=== PATIENT | female | born 1965 | race Two or more races ===

== ENCOUNTER 2017-09-16 08:38 | Emergency (ER) | payer OTHER ==
[~2017-09-16] VITALS: Ht 149.9 cm; Wt 113.4 kg
[~2017-09-16 08:38] MED LIST: ACETAMINOPHEN500 M3 ORAL; KEFLEX500 MG ORAL; MACROBID100 MG ORAL
[2017-09-16 08:43] VITALS: BP 124/87
[2017-09-16] MEDS ORDERED: NS 1000ml 3,400 ML IVLG ONE (09:00)
--- NOTE | 2017-09-16 09:01 | Emergency Room Report ---
History of Present Illness General Chief Complaint: General Complaint Present Illness HPI Patient is a 52-year-old female presented after increased generalized body aches and weakness for the past 3 days. Patient gradual onset of symptoms associated with nonproductive cough. Patient reported having increased palpitations she apparently had been taking ibuprofen and Tylenol. she stated she had not taken her blood pressure medications her diabetic medications morning. Patient denied any diarrhea but states she had been vomiting. She denies any diarrhea. She denies prior cardiac history Allergies: Coded Allergies: METFORMIN (Verified Allergy, Unknown, 09/16/17) Patient History Past Medical History: see triage record Reviewed Nursing Documentation: PMH: Agreed, PSxH: Agreed Nursing Documentation-PMH Hx Hypertension: Yes Hx Diabetes: Yes Review of Systems All Other Systems: negative except mentioned in HPI Physical Exam Vital Signs Date Time Temp Pulse Resp B/P (MAP) Pulse Ox O2 Delivery O2 Flow Rate FiO2 09/16/17 08:43 99.0 126 20 124/87 94 Room Air Sp02 EP Interpretation: reviewed, normal General Appearance: normal inspection, well appearing, alert, GCS 15, non-toxic , obese Head: atraumatic ENT: normal ENT inspection, hearing grossly normal, normal voice Neck: normal inspection, full range of motion, supple, no bony tend Respiratory: normal inspection, lungs clear, normal breath sounds, no respiratory distress, no retraction, no wheezing Cardiovascular #1: no edema, tachycardia Gastrointestinal: normal inspection, normal bowel sounds, non tender, soft, no guarding, no hernia Genitourinary: no CVA tenderness Musculoskeletal: normal inspection, back normal, normal range of motion Neurologic: normal inspection, alert, oriented x3, responsive, mottler operator III-XII nml as tested, speech normal Psychiatric: normal inspection, judgement/insight normal, mood/affect normal Skin: normal inspection, normal color, no rash Medical Decision Making Diagnostic Impression: Primary Impression: Fever Additional Impression: Urinary tract infection ER Course Patient presented for fever. Differential diagnosis included wasn't limited to pneumonia, urinary tract infection, influenza, drug fever, allergic reaction, sepsis, cholecystitis, among others. Because of complexity of patient's case laboratory testing and imaging studies were ordered.Laboratory studies showed evidence of urinary infection. Patient was given IV fluids as well as IV antibiotics. Patient stated she felt better wanted to go home.The patient is advised to follow up with primary care doctor in 1-2 days. Patient is advised to return if any worsening condition or if any changes in status that are concerning. This report is dictated with [employer] machine set up operator software which may occasionally lead to discrepancies related to use of this software. Labs Test 09/16/17 09:00 09/16/17 09:14 Urine Color Pale yellow Urine Appearance Clear Urine pH 6 (4.5-8.0) Urine Specific [place] 1.010 (1.005-1.035) Urine Protein 1+ (NEGATIVE) Urine Glucose (UA) Negative (NEGATIVE) Urine Ketones Negative (NEGATIVE) Urine Occult Blood 1+ (NEGATIVE) Urine Nitrite Negative (NEGATIVE) Urine Bilirubin Negative (NEGATIVE) Urine Urobilinogen Normal MG/DL (0.0-1.0) Urine Leukocyte Esterase 3+ (NEGATIVE) Urine RBC 2-4 /HPF (0 - 2) Urine WBC 15-20 /HPF (0 - 2) Urine Squamous Epithelial Cells Few /LPF (NONE/OCC) Urine Bacteria Few /HPF (NONE) White Blood Count 6.1 K/UL (4.8-10.8) Red Blood Count 4.79 M/UL (4.20-5.40) Hemoglobin 14.3 G/DL (12.0-16.0) Hematocrit 44.1 % (37.0-47.0) Mean Corpuscular Volume 92 FL (80-99) Mean Corpuscular Hemoglobin 29.9 PG (27.0-31.0) Mean Corpuscular Hemoglobin Concent 32.5 G/DL (32.0-36.0) Red Cell Distribution Width 12.6 % (11.6-14.8) Platelet Count 210 K/UL (150-450) Mean Platelet Volume 7.6 FL (6.5-10.1) Neutrophils (%) (Auto) 74.6 % (45.0-75.0) Lymphocytes (%) (Auto) 16.6 % (20.0-45.0) Monocytes (%) (Auto) 7.7 % (1.0-10.0) Eosinophils (%) (Auto) 0.5 % (0.0-3.0) Basophils (%) (Auto) 0.6 % (0.0-2.0) Sodium Level 137 MMOL/L (136-145) Potassium Level 3.4 MMOL/L (3.5-5.1) Chloride Level 99 MMOL/L (98-107) Carbon Dioxide Level 28 MMOL/L (21-32) Anion Gap 10 mmol/L (5-15) Blood Urea Nitrogen 10 mg/dL (7-18) Creatinine 0.8 MG/DL (0.55-1.30) Estimat Glomerular Filtration Rate > 60 mL/min (>60) Glucose Level 196 MG/DL (74-106) Lactic Acid Level 1.80 mmol/L (0.66-2.22) Calcium Level 8.8 MG/DL (8.5-10.1) Phosphorus Level 2.7 MG/DL (2.5-4.9) Magnesium Level 1.7 MG/DL (1.8-2.4) Total Bilirubin 0.4 MG/DL (0.2-1.0) Aspartate Amino Transf (AST/SGOT) 18 U/L (15-37) Alanine Aminotransferase (ALT/SGPT) 38 U/L (12-78) Alkaline Phosphatase 145 U/L (46-116) Total Creatine Kinase 104 U/L (26-308) Creatine Kinase MB 0.5 NG/ML (0.0-3.6) Creatine Kinase MB Relative Index 0.4 Troponin I 0.000 ng/mL (0.000-0.056) Total Protein 7.5 G/DL (6.4-8.2) Albumin 3.5 G/DL (3.4-5.0) Globulin 4.0 g/dL Albumin/Globulin Ratio 0.9 (1.0-2.7) Last Vital Signs Date Time Temp Pulse Resp B/P (MAP) Pulse Ox O2 Delivery O2 Flow Rate FiO2 09/16/17 08:43 99.0 126 20 124/87 94 Room Air Status: improved Disposition: HOME, SELF-CARE Condition: Stable Scripts Acetaminophen* (ACETAMINOPHEN EXTRA STRENGTH*) 500 Mg Tablet 500 MG ORAL Q8H Y for Fever/Headache/Mild Pain, #30 TAB Prov: Gaurav Norton 09/16/17 Cephalexin* (KEFLEX*) 500 Mg Capsule 500 MG ORAL Q6H, #28 CAP 0 Refills Prov: Gaurav Norton 09/16/17 Gaurav Norton Sep 16, 2017 09:01
[2017-09-16 09:10] LABS: APPEARANCE,URINE CLEAR; BILIRUBIN, URINE NEGATIVE (NEGATIVE); COLOR,URINE PALE YELLOW; GLUCOSE, URINE (UA) NEGATIVE (NEGATIVE); KETONES,URINE NEGATIVE (NEGATIVE); LEUKOCYTE ESTERASE ,URINE 3+ (NEGATIVE); NITRITE,URINE NEGATIVE (NEGATIVE); PH,URINE 6 (4.5-8.0); PROTEIN,URINE 1+ (NEGATIVE); UROBILINOGEN,URINE NORMAL MG/DL (0.0-1.0)
[2017-09-16] MEDS ORDERED: Acetaminophen 500mg (ES) tab ORAL ONE (09:30)
[2017-09-16 09:31] LABS: BASOPHILS % (AUTO) 0.6 % (0.0-2.0); EOSINOPHILS % (AUTO) 0.5 % (0.0-3.0); HEMATOCRIT 44.1 % (37.0-47.0); HEMOGLOBIN 14.3 G/DL (12.0-16.0); LYMPHOCYTES % (AUTO) 16.6 % (20.0-45.0); MEAN CORPUSCULAR VOLUME 92 FL (80-99); MONOCYTES % (AUTO) 7.7 % (1.0-10.0); NEUTROPHILS % (AUTO) 74.6 % (45.0-75.0); PLATELET COUNT 210 K/UL (150-450); RED BLOOD COUNT 4.79 M/UL (4.20-5.40); RED CELL DISTRIBUTION WIDTH 12.6 % (11.6-14.8); WHITE BLOOD COUNT 6.1 K/UL (4.8-10.8)
[2017-09-16 09:37] LABS: ANION GAP 10 mmol/L (5-15); BLOOD UREA NITROGEN 10 mg/dL (7-18); CALCIUM 8.8 MG/DL (8.5-10.1); CARBON DIOXIDE 28 MMOL/L (21-32); CHLORIDE 99 MMOL/L (98-107); CREATININE 0.8 MG/DL (0.55-1.30); POTASSIUM 3.4 MMOL/L (3.5-5.1); SODIUM 137 MMOL/L (136-145)
[2017-09-16] MEDS ORDERED: cefTRIAXone 2 GM in NS 55 ML IVPB ONE (09:45)
--- NOTE | 2017-09-16 09:46 | Diagnostic Imaging Report ---
Indication: Reason For Exam: SOB Technique: One view of the chest Comparison: 12/04/2011 Findings: Suboptimal inspiration currently. Crowding of the bronchovascular markings as a result. There is a band of atelectasis in the right midlung and another in left perihilar region. There may be mild interstitial congestion. Pleural spaces are clear. No focal airspace consolidation Impression: Hypoventilatory exam Possible bilateral interstitial edema. Correlate with clinical findings
[2017-09-16 09:50] LABS: ALANINE AMINOTRANSFERASE 38 U/L (12-78); ALBUMIN 3.5 G/DL (3.4-5.0); ALBUMIN/GLOBULIN RATIO 0.9 (1.0-2.7); ALKALINE PHOSPHATASE 145 U/L (46-116); ASPARTATE AMINO TRANSFERASE 18 U/L (15-37); BILIRUBIN,TOTAL 0.4 MG/DL (0.2-1.0); CKMB 0.5 NG/ML (0.0-3.6); CREATINE KINASE 104 U/L (26-308); PHOSPHORUS 2.7 MG/DL (2.5-4.9)
[2017-09-16 10:33] VITALS: BP 140/83
[2017-09-16 12:29] VITALS: BP 133/89
[2017-09-16] MEDS ORDERED: ACETAMINOPHEN500 M3 ORAL (12:29)
[2017-09-16] MEDS ORDERED: KEFLEX500 MG ORAL (12:29)
[2017-09-16 12:42] VITALS: BP 128/85
[2017-09-16 12:44] VITALS: BP 128/85
--- NOTE | 2017-09-27 17:00 | Cardiology Report ---
APPROVED REPORT EKG Measurement Heart [id number] Sinus tachycardia Otherwise normal ECG
== END 2017-09-16 12:44 | disposition home or self-care (01) ==
LOC: EMR 09:00
DX: N39.0 Urinary tract infection, site not specified (principal); I10 Essential (primary) hypertension; E11.9 Type 2 diabetes mellitus without complications; Z88.8 Allergy status to other drugs, medicaments and biological substances
CPT/HCPCS: 36415; 71045; 80053; 81003; 82550; 82553; 83605; 83735; 84100; 84484; 85025; 86710; 87040; 87086; 87181; 93005; 96361; 96365; 99284; J0696

== ENCOUNTER 2017-12-16 13:05 | Inpatient (IN) | payer OTHER ==
[~2017-12-16] VITALS: Ht 157.5 cm; Wt 90.7 kg
[2017-12-16 13:23] VITALS: BP 129/103
--- NOTE | 2017-12-16 13:51 | Emergency Room Report ---
History of Present Illness General Chief Complaint: Fever Source: Patient, Medical Record Present Illness HPI Patient is a 52-year-old female who presented after increased fever as well as bilateral leg pain. The patient reports having a fever onset this morning. She reported having increased labial rash. She denies any headache. She reports having bilateral lower extremity pain. Denies any increased swelling. The patient's history of diabetes. The patient denies any antibiotic allergies. Allergies: Coded Allergies: METFORMIN (Verified Allergy, Unknown, 09/16/17) Patient History Past Medical History: see triage record Reviewed Nursing Documentation: PMH: Agreed; PSxH: Agreed Nursing Documentation-PMH Past Medical History: No History, Except For Hx Cardiac Problems: No Hx Hypertension: Yes Hx Pacemaker: No Hx Asthma: No Hx COPD: No Hx Diabetes: Yes Hx Cancer: No Hx Gastrointestinal Problems: No Hx Dialysis: No Hx Neurological Problems: No Hx Cerebrovascular Accident: No Hx Seizures: No Review of Systems All Other Systems: negative except mentioned in HPI Physical Exam Vital Signs Date Time Temp Pulse Resp B/P (MAP) Pulse Ox O2 Delivery O2 Flow Rate FiO2 12/16/17 13:13 100.1 125 18 147/93 100 Room Air 100.0 Sp02 EP Interpretation: reviewed, normal General Appearance: normal inspection, well appearing, no apparent distress, alert, moderate distress, obese Head: atraumatic ENT: normal ENT inspection, hearing grossly normal, normal voice Neck: normal inspection, full range of motion, supple, no bony tend Respiratory: normal inspection, lungs clear, normal breath sounds, no respiratory distress, no retraction, no wheezing Cardiovascular #1: regular rate, rhythm, no edema Gastrointestinal: normal inspection, normal bowel sounds, non tender, soft, no guarding, no hernia Genitourinary: no CVA tenderness Musculoskeletal: normal inspection, back normal, normal range of motion Neurologic: normal inspection, alert, responsive, speech normal Psychiatric: normal inspection, judgement/insight normal, mood/affect normal Skin: normal inspection, normal color, no rash Medical Decision Making Diagnostic Impression: Primary Impression: Severe sepsis Additional Impressions: Diameter of abdominal aorta less than 30 mm Diabetes ER Course Patient presented for fever and difficulty breathing.Differential included but was not limited to anemia, pneumonia, pneumothorax, myocardial infarction, pericardial effusion, congestive heart failure, acidosis. The patient noted to have elevated lactic acid level. ABG was unremarkable. A chest x-ray one view read by radiology showed no evidence of acute infiltrate or cardiomegaly. The patient was noted to have no white blood count elevation. Lactic acid level was noted to be improved on repeat exam Dr. Ghosh was contacted for for inpatient management Labs Test 12/16/17 13:45 12/16/17 14:10 12/16/17 15:50 White Blood Count 7.8 K/UL (4.8-10.8) Red Blood Count 4.58 M/UL (4.20-5.40) Hemoglobin 13.7 G/DL (12.0-16.0) Hematocrit 40.6 % (37.0-47.0) Mean Corpuscular Volume 89 FL (80-99) Mean Corpuscular Hemoglobin 29.9 PG (27.0-31.0) Mean Corpuscular Hemoglobin Concent 33.7 G/DL (32.0-36.0) Red Cell Distribution Width 12.0 % (11.6-14.8) Platelet Count 228 K/UL (150-450) Mean Platelet Volume 7.6 FL (6.5-10.1) Neutrophils (%) (Auto) 81.2 % (45.0-75.0) Lymphocytes (%) (Auto) 11.8 % (20.0-45.0) Monocytes (%) (Auto) 6.0 % (1.0-10.0) Eosinophils (%) (Auto) 0.3 % (0.0-3.0) Basophils (%) (Auto) 0.7 % (0.0-2.0) Sodium Level 138 MMOL/L (136-145) Potassium Level 3.1 MMOL/L (3.5-5.1) Chloride Level 101 MMOL/L (98-107) Carbon Dioxide Level 23 MMOL/L (21-32) Anion Gap 14 mmol/L (5-15) Blood Urea Nitrogen 4 mg/dL (7-18) Creatinine 0.8 MG/DL (0.55-1.30) Estimat Glomerular Filtration Rate > 60 mL/min (>60) Glucose Level 168 MG/DL (74-106) Calcium Level 8.7 MG/DL (8.5-10.1) Total Bilirubin 0.5 MG/DL (0.2-1.0) Aspartate Amino Transf (AST/SGOT) 20 U/L (15-37) Alanine Aminotransferase (ALT/SGPT) 38 U/L (12-78) Alkaline Phosphatase 133 U/L (46-116) Total Creatine Kinase 135 U/L (26-308) Troponin I 0.000 ng/mL (0.000-0.056) Pro-B-Type Natriuretic Peptide 56 pg/mL (0-125) Total Protein 7.3 G/DL (6.4-8.2) Albumin 3.6 G/DL (3.4-5.0) Globulin 3.7 g/dL Albumin/Globulin Ratio 1.0 (1.0-2.7) Lipase 140 U/L (73-393) Urine Color Yellow Urine Appearance Slightly cloudy Urine pH 8 (4.5-8.0) Urine Specific [place] 1.010 (1.005-1.035) Urine Protein 2+ (NEGATIVE) Urine Glucose (UA) Negative (NEGATIVE) Urine Ketones 2+ (NEGATIVE) Urine Occult Blood Negative (NEGATIVE) Urine Nitrite Negative (NEGATIVE) Urine Bilirubin Negative (NEGATIVE) Urine Urobilinogen Normal MG/DL (0.0-1.0) Urine Leukocyte Esterase 1+ (NEGATIVE) Urine RBC 0-2 /HPF (0 - 2) Urine WBC 2-4 /HPF (0 - 2) Urine Squamous Epithelial Cells Many /LPF (NONE/OCC) Urine Bacteria Occasional /HPF (NONE) Lactic Acid Level 1.20 mmol/L (0.66-2.22) EKG Diagnostic Results Rate: tachycardiac Rhythm: NSR ST Segments: no acute changes Rhythm Strip Diag. Results EP Interpretation: yes Rhythm: NSR, no PVC's, no ectopy Last Vital Signs Date Time Temp Pulse Resp B/P (MAP) Pulse Ox O2 Delivery O2 Flow Rate FiO2 12/16/17 13:13 100.1 125 18 147/93 100 Room Air 100.0 Status: unchanged Disposition: ADMITTED INPATIENT Condition: Serious Scripts Ibuprofen (Ibuprofen) 400 Mg Tablet 400 MG PO Q8HR, #30 TAB Prov: Gaurav Norton 12/16/17 Acetaminophen* (ACETAMINOPHEN EXTRA STRENGTH*) 500 Mg Tablet 500 MG ORAL Q8H PRN for Fever/Headache/Mild Pain, #30 TAB 0 Refills Prov: Gaurav Norton 12/16/17 Gaurav Norton Dec 16, 2017 13:51
[2017-12-16] MEDS ORDERED: Acetaminophen 500mg (ES) tab ORAL ONE (14:00)
[2017-12-16] MEDS ORDERED: NKM (14:08)
[2017-12-16] MEDS ORDERED: UNOBMED (14:08)
[2017-12-16] MEDS ORDERED: Acyclovir 500 MG in D5W 110 ML IVPB SCH (14:15)
[2017-12-16] MEDS ORDERED: cefTRIAXone 1 GM in NS 55 ML IVPB ONE (14:15)
[2017-12-16] MEDS ORDERED: LORazepam Inj 2mg/ml 1ml IV ONE (14:15)
[2017-12-16 14:19] LABS: BASOPHILS % (AUTO) 0.7 % (0.0-2.0); EOSINOPHILS % (AUTO) 0.3 % (0.0-3.0); HEMATOCRIT 40.6 % (37.0-47.0); HEMOGLOBIN 13.7 G/DL (12.0-16.0); LYMPHOCYTES % (AUTO) 11.8 % (20.0-45.0); MEAN CORPUSCULAR VOLUME 89 FL (80-99); NEUTROPHILS % (AUTO) 81.2 % (45.0-75.0); PLATELET COUNT 228 K/UL (150-450); RED BLOOD COUNT 4.58 M/UL (4.20-5.40); WHITE BLOOD COUNT 7.8 K/UL (4.8-10.8)
--- NOTE | 2017-12-16 14:37 | Diagnostic Imaging Report ---
Indication: Chest pain Technique: XRAY Chest 1v Comparison: None Findings: Limited exam due to underpenetration, likely related to large body habitus. Heart size and mediastinal contours within normal limits and stable compared to the prior exam allowing for differences in technique. No definite focal airspace consolidation, pleural effusion or pneumothorax. There is degenerative change of the spine. No acute osseous abnormality seen. IMPRESSION: No definite radiographic evidence of acute cardiopulmonary disease.
[2017-12-16 14:38] LABS: APPEARANCE,URINE SLIGHTLY CLOUDY; BILIRUBIN, URINE NEGATIVE (NEGATIVE); GLUCOSE, URINE (UA) NEGATIVE (NEGATIVE); KETONES,URINE 2+ (NEGATIVE); LEUKOCYTE ESTERASE ,URINE 1+ (NEGATIVE); NITRITE,URINE NEGATIVE (NEGATIVE); PH,URINE 8 (4.5-8.0); PROTEIN,URINE 2+ (NEGATIVE); UROBILINOGEN,URINE NORMAL MG/DL (0.0-1.0)
[2017-12-16 14:40] LABS: COLOR,URINE YELLOW
[2017-12-16 14:50] LABS: ANION GAP 14 mmol/L (5-15); BLOOD UREA NITROGEN 4 mg/dL (7-18); CALCIUM 8.7 MG/DL (8.5-10.1); CARBON DIOXIDE 23 MMOL/L (21-32); CHLORIDE 101 MMOL/L (98-107); CREATININE 0.8 MG/DL (0.55-1.30); POTASSIUM 3.1 MMOL/L (3.5-5.1); SODIUM 138 MMOL/L (136-145)
[2017-12-16 14:54] LABS: ALANINE AMINOTRANSFERASE 38 U/L (12-78); ALBUMIN 3.6 G/DL (3.4-5.0); ALKALINE PHOSPHATASE 133 U/L (46-116); ASPARTATE AMINO TRANSFERASE 20 U/L (15-37); BILIRUBIN,TOTAL 0.5 MG/DL (0.2-1.0); CREATINE KINASE 135 U/L (26-308)
[2017-12-16 15:00] VITALS: BP 119/58
[2017-12-16] MEDS ORDERED: IBUPROFEN400 M1 PO (16:27)
[2017-12-16] MEDS ORDERED: ACETAMINOPHEN500 M3 ORAL (16:27)
[2017-12-16 17:00] VITALS: BP 121/60
[2017-12-16] MEDS ORDERED: Miralax 17gm pkt ORAL PRN (17:30)
[2017-12-16] MEDS ORDERED: Albuterol/Ipratropium 3ml neb HHN PRN (17:30)
[2017-12-16] MEDS: Ketorolac 30mg Inj IV PRN (19:14)
[2017-12-16] MEDS: NS w/KCl 20mEq 1,000 ML IV SCH (19:14)
[2017-12-16] MEDS: Albuterol/Ipratropium 3ml neb HHN SCH (19:30)
[2017-12-16 20:00] VITALS: BP 115/77
--- NOTE | 2017-12-16 20:02 | Infectious Diseases Prog Note ---
Assessment/Plan Assessment/Plan Full consult dictated: A) 1) fevers, tachycardia, ? sepsis, ? source, elevated ldh 2) oral/lip hsv 3) dm, htn 4) allergies - metformin P) 1) rocephin, oral acyclovir 2) check cultures and f/u chest x-ray 3) check labs 4) thank you Subjective Allergies: Coded Allergies: METFORMIN (Verified Allergy, Unknown, 09/16/17) Objective Vital Signs Last 24 Hour Vital Signs Date Time Temp Pulse Resp B/P (MAP) Pulse Ox O2 Delivery O2 Flow Rate FiO2 12/16/17 19:42 106 18 97 Room Air 21 12/16/17 19:35 105 18 95 Room Air 21 12/16/17 19:35 105 18 Room Air 21 12/16/17 19:35 21 12/16/17 18:11 98.1 114 17 118/70 95 Room Air 12/16/17 17:00 98.5 110 16 121/60 99 Room Air 98.5 12/16/17 15:00 98.1 108 17 119/58 98 Room Air 98.1 12/16/17 14:57 98.1 12/16/17 14:56 98.1 12/16/17 13:58 100.1 12/16/17 13:57 100.1 12/16/17 13:23 100.0 128 21 129/103 97 Room Air 100.0 12/16/17 13:13 100.1 125 18 147/93 100 Room Air 100.0 Height (Feet): 5 Height (Inches): 2.00 Weight (Pounds): 200 Microbiology Date/Time Source Procedure Growth Status 12/16/17 15:15 Nasal Nares Influenza Types A,B Antigen (NEO) - Final Complete Laboratory Tests Test 12/16/17 13:45 12/16/17 14:10 12/16/17 15:50 12/16/17 17:20 White Blood Count 7.8 K/UL (4.8-10.8) Red Blood Count 4.58 M/UL (4.20-5.40) Hemoglobin 13.7 G/DL (12.0-16.0) Hematocrit 40.6 % (37.0-47.0) Mean Corpuscular Volume 89 FL (80-99) Mean Corpuscular Hemoglobin 29.9 PG (27.0-31.0) Mean Corpuscular Hemoglobin Concent 33.7 G/DL (32.0-36.0) Red Cell Distribution Width 12.0 % (11.6-14.8) Platelet Count 228 K/UL (150-450) Mean Platelet Volume 7.6 FL (6.5-10.1) Neutrophils (%) (Auto) 81.2 % (45.0-75.0) H Lymphocytes (%) (Auto) 11.8 % (20.0-45.0) L Monocytes (%) (Auto) 6.0 % (1.0-10.0) Eosinophils (%) (Auto) 0.3 % (0.0-3.0) Basophils (%) (Auto) 0.7 % (0.0-2.0) Sodium Level 138 MMOL/L (136-145) Potassium Level 3.1 MMOL/L (3.5-5.1) L Chloride Level 101 MMOL/L (98-107) Carbon Dioxide Level 23 MMOL/L (21-32) Anion Gap 14 mmol/L (5-15) Blood Urea Nitrogen 4 mg/dL (7-18) L Creatinine 0.8 MG/DL (0.55-1.30) Estimat Glomerular Filtration Rate > 60 mL/min (>60) Glucose Level 168 MG/DL (74-106) H Lactic Acid Level 2.90 mmol/L (0.66-2.22) H 1.20 mmol/L (0.66-2.22) Calcium Level 8.7 MG/DL (8.5-10.1) Total Bilirubin 0.5 MG/DL (0.2-1.0) Aspartate Amino Transf (AST/SGOT) 20 U/L (15-37) Alanine Aminotransferase (ALT/SGPT) 38 U/L (12-78) Alkaline Phosphatase 133 U/L (46-116) H Total Creatine Kinase 135 U/L (26-308) Troponin I 0.000 ng/mL (0.000-0.056) Pro-B-Type Natriuretic Peptide 56 pg/mL (0-125) Total Protein 7.3 G/DL (6.4-8.2) Albumin 3.6 G/DL (3.4-5.0) Globulin 3.7 g/dL Albumin/Globulin Ratio 1.0 (1.0-2.7) Lipase 140 U/L (73-393) Urine Color Yellow Urine Appearance Slightly cloudy Urine pH 8 (4.5-8.0) Urine Specific [place] 1.010 (1.005-1.035) Urine Protein 2+ (NEGATIVE) H Urine Glucose (UA) Negative (NEGATIVE) Urine Ketones 2+ (NEGATIVE) H Urine Occult Blood Negative (NEGATIVE) Urine Nitrite Negative (NEGATIVE) Urine Bilirubin Negative (NEGATIVE) Urine Urobilinogen Normal MG/DL (0.0-1.0) Urine Leukocyte Esterase 1+ (NEGATIVE) H Urine RBC 0-2 /HPF (0 - 2) Urine WBC 2-4 /HPF (0 - 2) Urine Squamous Epithelial Cells Many /LPF (NONE/OCC) H Urine Bacteria Occasional /HPF (NONE) Arterial Blood pH 7.450 (7.350-7.450) Arterial Blood Partial Pressure CO2 31.6 mmHg (35.0-45.0) L Arterial Blood Partial Pressure O2 62.1 mmHg (75.0-100.0) L Arterial Blood HCO3 21.5 mmol/L (22.0-26.0) L Arterial Blood Oxygen Saturation 91.9 % (92.0-98.0) L Arterial Blood Base Excess -1.7 [place] Test Positive Current Medications Medications (Trade) Dose Ordered Sig/Ailyn Route PRN Reason Start Time Stop Time Status Last Admin Dose Admin Acetaminophen (Tylenol) 650 mg Q4H PRN ORAL Mild Pain (Pain Scale 1-3) 12/16/17 17:30 01/15/18 17:29 Acetaminophen (Tylenol) 650 mg Q4H PRN ORAL T>100.5 12/16/17 17:30 01/15/18 17:29 Albuterol/ Ipratropium (Albuterol/ Ipratropium) 3 ml Q4H PRN HHN Shortness of Breath 12/16/17 17:30 12/21/17 17:29 Albuterol/ Ipratropium (Albuterol/ Ipratropium) 3 ml Q6HRT HHN 12/16/17 19:00 12/21/17 18:59 12/16/17 19:30 Bisacodyl (Dulcolax) 10 mg DAILYPRN PRN RECTAL Constipation 12/16/17 17:30 01/15/18 17:29 Dextrose (Dextrose 50%) 25 ml STAT PRN IV Hypoglycemia 12/16/17 17:30 01/15/18 17:29 Dextrose (Dextrose 50%) 50 ml STAT PRN IV Hypoglycemia 12/16/17 17:30 01/15/18 17:29 Diphenhydramine HCl (Benadryl) 25 mg Q6H PRN ORAL Itching/Pruritis 12/16/17 17:30 01/15/18 17:29 Docusate Sodium (Colace) 100 mg EVERY 12 HOURS ORAL 12/16/17 21:00 01/15/18 20:59 Heparin Sodium (Porcine) (Heparin 5000 units/ml) 5,000 units EVERY 12 HOURS SUBQ 12/16/17 21:00 01/15/18 20:59 Ketorolac Tromethamine (Toradol 30mg) 15 mg Q6H PRN IV PAIN 4-10 12/16/17 17:45 12/21/17 17:44 12/16/17 19:14 Ondansetron HCl (Zofran) 4 mg Q6H PRN IVP Nausea & Vomiting 12/16/17 17:30 01/15/18 17:29 Polyethylene Glycol (Miralax) 17 gm DAILYPRN PRN ORAL Constipation 12/16/17 17:30 01/15/18 17:29 Sodium Chloride 1,000 ml @ 100 mls/hr Q10H IV 12/16/17 18:30 01/15/18 18:29 12/16/17 19:14 EDUARDO HERNÁNDEZ Dec 16, 2017 20:01
[2017-12-16] MEDS: Docusate 100mg cap ORAL SCH (21:00)
[2017-12-16] MEDS: Heparin 5000 units/ml inj SUBQ SCH (21:00)
[2017-12-17] VITALS: BP 119/73
[2017-12-17] MEDS: Albuterol/Ipratropium 3ml neb HHN SCH ×3 (00:13→13:22)
[2017-12-17] MEDS: Ketorolac 30mg Inj IV PRN ×2 (03:50→16:00)
[2017-12-17 04:00] VITALS: BP 142/94
[2017-12-17] MEDS: NS w/KCl 20mEq 1,000 ML IV SCH ×2 (04:34→14:17)
[2017-12-17 04:53] LABS: BASOPHILS % (AUTO) 0.5 % (0.0-2.0); EOSINOPHILS % (AUTO) 0.1 % (0.0-3.0); HEMATOCRIT 33.8 % (37.0-47.0); HEMOGLOBIN 11.7 G/DL (12.0-16.0); LYMPHOCYTES % (AUTO) 16.6 % (20.0-45.0); MEAN CORPUSCULAR VOLUME 89 FL (80-99); MONOCYTES % (AUTO) 8.4 % (1.0-10.0); NEUTROPHILS % (AUTO) 74.4 % (45.0-75.0); PLATELET COUNT 193 K/UL (150-450); RED BLOOD COUNT 3.79 M/UL (4.20-5.40); RED CELL DISTRIBUTION WIDTH 12.7 % (11.6-14.8); WHITE BLOOD COUNT 5.2 K/UL (4.8-10.8)
[2017-12-17 05:19] LABS: ANION GAP 13 mmol/L (5-15); BLOOD UREA NITROGEN 5 mg/dL (7-18); CARBON DIOXIDE 22 MMOL/L (21-32); CHLORIDE 104 MMOL/L (98-107); CREATININE 0.7 MG/DL (0.55-1.30); LACTATE DEHYDROGENASE 202 U/L (81-234); POTASSIUM 3.1 MMOL/L (3.5-5.1); SODIUM 139 MMOL/L (136-145)
[2017-12-17 05:27] LABS: ALANINE AMINOTRANSFERASE 33 U/L (12-78); ALBUMIN 3.1 G/DL (3.4-5.0); ALKALINE PHOSPHATASE 108 U/L (46-116); ASPARTATE AMINO TRANSFERASE 18 U/L (15-37); BILIRUBIN,DIRECT 0.1 MG/DL (0.0-0.3); BILIRUBIN,TOTAL 0.3 MG/DL (0.2-1.0)
--- NOTE | 2017-12-17 06:00 | Consultation ---
DATE OF CONSULTATION: 12/16/2017 NOTE: POOR AUDIO INFECTIOUS DISEASE CONSULTATION CONSULTING PHYSICIAN: Mykel Weathers M.D. ATTENDING PHYSICIAN: Susie Sesay M.D. REFERRING PHYSICIAN: Ceci Fisher M.D. REASON FOR CONSULTATION: Possible sepsis, fevers, and tachycardia. CHIEF COMPLAINT: The patient's chief complaint coming in to the hospital is sepsis and diabetes. HISTORY OF PRESENT ILLNESS: This is a 52-year-old female who this morning and I believe in the last one to two days, has been feeling somewhat weak and has had fever and chills. This was more pronounced this morning. She has what sounds like pain in the legs versus myalgias. The patient has tachycardia and possible occult sepsis. Infectious Disease consultation was requested for antibiotic management in this patient. The patient does have an elevated lactic acid level initially, but however followup was normal. The patient's temperature has been as high as 100.1. The patient was placed on Rocephin and Flagyl empirically. She also has what looks like in the lower lip a possible herpes simplex virus lesion. The patient also will be placed on acyclovir in addition to Rocephin and Flagyl. Blood cultures are pending. UA is fairly benign. Chest x-ray was negative initially. Followup chest x-ray has been ordered. PAST MEDICAL HISTORY: The patient's past medical history includes history of the following: She has past medical history of diabetes and hypertension. No other past medical history mentioned. MEDICATIONS: Upon reviewing the MAR, she is on the following medications. She is on heparin, docusate, breathing treatments, ketorolac, albuterol, acetaminophen, polyethylene, bisacodyl, Zofran, and diphenhydramine. The patient was placed on Rocephin, Flagyl, and acyclovir. ALLERGIES: Metformin. SOCIAL HISTORY: Negative for smoking, alcohol, or drug abuse. FAMILY HISTORY: Noncontributory. REVIEW OF SYSTEMS: CONSTITUTIONAL: Generalized fatigued, fever, chills. HEAD AND NECK: No head pain or neck pain. I discussed the patient through an statement clerk, friend or family member at the bedside. The patient has no headache, change in vision, or neck stiffness. She has no thrush or dysphagia. No pharyngitis. CARDIAC: No chest pain or palpitations. GASTROINTESTINAL: No nausea, vomiting, diarrhea, or abdominal pain. PULMONARY: No congestion, shortness of breath, hemoptysis, or secretions. SKIN: No rash or itching. EXTREMITIES: No extremity pain. NEUROLOGIC: No seizures. GENITOURINARY: No mention of dysuria or frequency. PHYSICAL EXAMINATION: VITAL SIGNS: Temperature 98.5, pulse rate 106, respiratory rate 18, blood pressure 118/70, and saturation 97% on room air. T-max was 100.1 on a consistent basis initially on admission. The heart rate initially was 128. GENERAL: Alert and responsive, no acute distress, nontoxic. She looks like maybe generalized fatigue, but alert and responsive. HEAD AND NECK: Oral exam, no thrush. Eye exam, no icterus. No neck stiffness. Neck is supple. No JVD. Normocephalic. No facial droop. No neck stiffness. Lower lip lesion, looks like possible herpetic lesion. LUNGS: Clear bilaterally. No rhonchi or rales. HEART: Regular. No obvious gallop or murmur. No friction rub. ABDOMEN: Soft. Positive bowel sounds. Nontender. MUSCULOSKELETAL: No effusions. Legs are without cellulitis. PERIPHERAL VASCULAR: No cyanosis or gangrene. SKIN: No rash. GENITOURINARY: No Vasquez. No CVA tenderness. LINES: Line sites without phlebitis. NEUROLOGIC: Intact and nonfocal. Able to move all four extremities well. LABORATORY AND DIAGNOSTIC DATA: Creatinine is 0.8. Alkaline phosphatase 133. Creatinine 0.8. White count 7.8, hemoglobin 13.7, elevated neutrophils were noted, mild elevation. Otherwise LFTs are unremarkable. UA had 2 to 4 white blood cells and 1+ leukocyte esterase, fairly benign. Influenza screen is negative. The patient's imaging studies, chest x-ray, no pneumonia. ASSESSMENT AND PLAN: 1. The patient has elevated lactic acid, fevers, possible occult sepsis. The patient could have a viral syndrome. Chest x-ray is benign. Clinically, she does not seem like she has pneumonia and her UA is fairly benign also. She also has what looks like possible oral herpetic lesion, herpes simplex virus on the lower lip. At this time, we will continue broad-spectrum antibiotics, Rocephin and Flagyl, and also acyclovir for the possible herpes simplex virus infection of the lips herpes simplex virus infection. Continue Rocephin, Flagyl, and acyclovir. Check cultures. Check followup chest x-ray. Check labs. Watch the patient clinically. At this time, the patient has sepsis. Etiology is unclear unless she has underlying viral syndrome that could explain the fevers. Influenza screen is negative. 2. Diabetes. 3. Hypertension. 4. Allergies to metformin. 5. Social history is negative. 6. Family history is noncontributory. 7. MAR was noted. 8. Case discussed with RN. 9. Case discussed with the patient and family at the bedside. 10. Continue treatment per primary consultants. 11. Notes and records were noted. 12. Orders were entered. Mykel Weathers M.D. DR: Feliberto JOB#: [id number] CC:
[2017-12-17] MEDS: NovoLOG Insulin Flexpen SUBQ SCH ×2 (06:30→11:25)
[2017-12-17] MEDS ORDERED: Levemir Flexpen SUBQ SCH (07:00)
[2017-12-17 08:00] VITALS: BP 151/100
[2017-12-17] MEDS: Docusate 100mg cap ORAL SCH (09:06)
[2017-12-17] MEDS: Heparin 5000 units/ml inj SUBQ SCH (09:10)
[2017-12-17] MEDS ORDERED: GlipiZIDE 5mg tab ORAL SCH (11:30)
--- NOTE | 2017-12-17 11:52 | Diagnostic Imaging Report ---
Indication: Cough Technique: One view of the chest Comparison: 12/16/2017 Findings: Lungs and pleural spaces are clear. Heart size is normal. There is no significant interim change Impression: No acute process
[2017-12-17 12:00] VITALS: BP 119/73
--- NOTE | 2017-12-17 13:50 | History and Physical ---
History of Present Illness General Date patient seen: Dec 17, 2017 Time patient seen: 13:50 Reason for Hospitalization: Fever Present Illness Allergies: Coded Allergies: METFORMIN (Verified Allergy, Unknown, 09/16/17) Medication History Scheduled Cephalexin* (Keflex*), 500 MG ORAL Q6H Cephalexin* (Keflex*), 500 MG ORAL Q6H Ibuprofen (Ibuprofen), 400 MG PO Q8HR Nitrofurantoin Monohyd/M-Cryst (Nitrofurantoin Haakon-Mcr 100 mg), 100 MG ORAL Q12H No Known Medications* (NKM - No Known Medications*), 0 ., (Reported) Scheduled PRN Acetaminophen* (Acetaminophen Extra Strength*), 500 MG ORAL Q8H PRN for Fever/ Headache/Mild Pain Acetaminophen* (Acetaminophen Extra Strength*), 500 MG ORAL Q8H PRN for Fever/ Headache/Mild Pain Miscellaneous Medications Unable to Obtain Medications (Unable To Obtain Meds), (Reported) Patient History Healthcare decision maker Resuscitation status Full Code Advanced Directive on File No Physical Exam Last 24 Hour Vital Signs Date Time Temp Pulse Resp B/P (MAP) Pulse Ox O2 Delivery O2 Flow Rate FiO2 12/17/17 13:26 88 18 99 Room Air 21 12/17/17 13:22 96 18 96 Room Air 21 12/17/17 13:22 21 12/17/17 08:37 103 18 99 Room Air 21 12/17/17 08:27 21 12/17/17 08:27 104 18 97 Room Air 21 12/17/17 08:00 98.2 106 21 151/100 94 Room Air 98.2 12/17/17 04:00 97.0 126 24 142/94 94 Room Air 97.0 12/17/17 03:51 117 12/17/17 00:25 109 18 97 Room Air 21 12/17/17 00:15 21 12/17/17 00:13 107 18 95 Room Air 21 12/17/17 00:00 98.1 101 20 119/73 95 Room Air 98.1 12/16/17 23:41 94 12/16/17 20:00 97.9 105 23 115/77 94 Room Air 97.9 12/16/17 19:42 106 18 97 Room Air 21 12/16/17 19:35 105 18 95 Room Air 21 12/16/17 19:35 105 18 Room Air 21 12/16/17 19:35 21 12/16/17 18:11 98.1 114 17 118/70 95 Room Air 12/16/17 17:00 98.5 110 16 121/60 99 Room Air 98.5 12/16/17 15:00 98.1 108 17 119/58 98 Room Air 98.1 12/16/17 14:57 98.1 12/16/17 14:56 98.1 12/16/17 13:58 100.1 12/16/17 13:57 100.1 Intake and Output 12/16/17 12/17/17 19:00 07:00 Intake Total 1155 ml Balance 1155 ml Intake Oral 0 ml IV Total 1155 ml # Voids 2 Laboratory Tests Test 12/16/17 14:10 12/16/17 15:50 12/16/17 17:20 12/17/17 04:02 Urine Color Yellow Urine Appearance Slightly cloudy Urine pH 8 (4.5-8.0) Urine Specific [place] 1.010 (1.005-1.035) Urine Protein 2+ (NEGATIVE) H Urine Glucose (UA) Negative (NEGATIVE) Urine Ketones 2+ (NEGATIVE) H Urine Occult Blood Negative (NEGATIVE) Urine Nitrite Negative (NEGATIVE) Urine Bilirubin Negative (NEGATIVE) Urine Urobilinogen Normal MG/DL (0.0-1.0) Urine Leukocyte Esterase 1+ (NEGATIVE) H Urine RBC 0-2 /HPF (0 - 2) Urine WBC 2-4 /HPF (0 - 2) Urine Squamous Epithelial Cells Many /LPF (NONE/OCC) H Urine Bacteria Occasional /HPF (NONE) Lactic Acid Level 1.20 mmol/L (0.66-2.22) Arterial Blood pH 7.450 (7.350-7.450) Arterial Blood Partial Pressure CO2 31.6 mmHg (35.0-45.0) L Arterial Blood Partial Pressure O2 62.1 mmHg (75.0-100.0) L Arterial Blood HCO3 21.5 mmol/L (22.0-26.0) L Arterial Blood Oxygen Saturation 91.9 % (92.0-98.0) L Arterial Blood Base Excess -1.7 Niles Test Positive White Blood Count 5.2 K/UL (4.8-10.8) Red Blood Count 3.79 M/UL (4.20-5.40) L Hemoglobin 11.7 G/DL (12.0-16.0) L Hematocrit 33.8 % (37.0-47.0) L Mean Corpuscular Volume 89 FL (80-99) Mean Corpuscular Hemoglobin 30.8 PG (27.0-31.0) Mean Corpuscular Hemoglobin Concent 34.5 G/DL (32.0-36.0) Red Cell Distribution Width 12.7 % (11.6-14.8) Platelet Count 193 K/UL (150-450) Mean Platelet Volume 7.5 FL (6.5-10.1) Neutrophils (%) (Auto) 74.4 % (45.0-75.0) Lymphocytes (%) (Auto) 16.6 % (20.0-45.0) L Monocytes (%) (Auto) 8.4 % (1.0-10.0) Eosinophils (%) (Auto) 0.1 % (0.0-3.0) Basophils (%) (Auto) 0.5 % (0.0-2.0) Sodium Level 139 MMOL/L (136-145) Potassium Level 3.1 MMOL/L (3.5-5.1) L Chloride Level 104 MMOL/L (98-107) Carbon Dioxide Level 22 MMOL/L (21-32) Anion Gap 13 mmol/L (5-15) Blood Urea Nitrogen 5 mg/dL (7-18) L Creatinine 0.7 MG/DL (0.55-1.30) Estimat Glomerular Filtration Rate > 60 mL/min (>60) Glucose Level 245 MG/DL (74-106) H Hemoglobin A1c 8.0 % (4.3-6.0) H Calcium Level 8.0 MG/DL (8.5-10.1) L Magnesium Level 1.4 MG/DL (1.8-2.4) L Total Bilirubin 0.3 MG/DL (0.2-1.0) Direct Bilirubin 0.1 MG/DL (0.0-0.3) Aspartate Amino Transf (AST/SGOT) 18 U/L (15-37) Alanine Aminotransferase (ALT/SGPT) 33 U/L (12-78) Alkaline Phosphatase 108 U/L (46-116) Lactate Dehydrogenase 202 U/L (81-234) Total Protein 6.3 G/DL (6.4-8.2) L Albumin 3.1 G/DL (3.4-5.0) L Vitamin B12 Level 534 PG/ML (193-986) Vitamin D 25-Hydroxy Pending 25-Hydroxy Vitamin D2 Pending 25-Hydroxy Vitamin D3 Pending Folate 13.4 NG/ML (8.6-58.9) Thyroid Stimulating Hormone (TSH) 1.235 uiU/mL (0.358-3.740) Microbiology Date/Time Source Procedure Growth Status 12/16/17 15:15 Nasal Nares Influenza Types A,B Antigen (NEO) - Final Complete Height (Feet): 5 Height (Inches): 2.00 Weight (Pounds): 200 Medications Current Medications Medications (Trade) Dose Ordered Sig/Ailyn Route PRN Reason Start Time Stop Time Status Last Admin Dose Admin Acetaminophen (Tylenol) 650 mg Q4H PRN ORAL Mild Pain (Pain Scale 1-3) 12/16/17 17:30 01/15/18 17:29 Acetaminophen (Tylenol) 650 mg Q4H PRN ORAL T>100.5 12/16/17 17:30 01/15/18 17:29 Acyclovir (Zovirax) 800 mg EVERY 8 HOURS ORAL 12/16/17 22:00 01/15/18 21:59 12/17/17 06:11 Albuterol/ Ipratropium (Albuterol/ Ipratropium) 3 ml Q4H PRN HHN Shortness of Breath 12/16/17 17:30 12/21/17 17:29 Albuterol/ Ipratropium (Albuterol/ Ipratropium) 3 ml Q6HRT HHN 12/16/17 19:00 12/21/17 18:59 12/17/17 13:22 Bisacodyl (Dulcolax) 10 mg DAILYPRN PRN RECTAL Constipation 12/16/17 17:30 01/15/18 17:29 Ceftriaxone Sodium 1 gm/ Dextrose 50 ml @ 100 mls/hr Q24H IVPB 12/17/17 14:00 12/24/17 23:59 Dextrose (Dextrose 50%) 25 ml STAT PRN IV Hypoglycemia 12/16/17 17:30 01/15/18 17:29 Dextrose (Dextrose 50%) 25 ml STAT PRN IV Hypoglycemia 12/16/17 22:45 01/15/18 22:44 Dextrose (Dextrose 50%) 50 ml STAT PRN IV Hypoglycemia 12/16/17 17:30 01/15/18 17:29 Dextrose (Dextrose 50%) 50 ml STAT PRN IV Hypoglycemia 12/16/17 22:45 01/15/18 22:44 Diphenhydramine HCl (Benadryl) 25 mg Q6H PRN ORAL Itching/Pruritis 12/16/17 17:30 01/15/18 17:29 Docusate Sodium (Colace) 100 mg EVERY 12 HOURS ORAL 12/16/17 21:00 01/15/18 20:59 12/17/17 09:06 Glipizide (Glucotrol) 5 mg BIAC ORAL 12/17/17 11:30 01/16/18 11:29 12/17/17 11:19 Heparin Sodium (Porcine) (Heparin 5000 units/ml) 5,000 units EVERY 12 HOURS SUBQ 12/16/17 21:00 01/15/18 20:59 12/17/17 09:10 Insulin Aspart (NovoLOG) BEFORE MEALS AND HS SUBQ 12/17/17 06:30 01/16/18 06:29 12/17/17 11:25 Insulin Detemir (Levemir) 10 units Q24H SUBQ 12/17/17 07:00 01/16/18 06:59 Ketorolac Tromethamine (Toradol 30mg) 15 mg Q6H PRN IV PAIN 4-10 12/16/17 17:45 12/21/17 17:44 12/17/17 03:50 Metronidazole 100 ml @ 100 mls/hr Q8H IVPB 12/17/17 00:00 12/24/17 23:59 12/17/17 09:06 Ondansetron HCl (Zofran) 4 mg Q6H PRN IVP Nausea & Vomiting 12/16/17 17:30 01/15/18 17:29 Polyethylene Glycol (Miralax) 17 gm DAILYPRN PRN ORAL Constipation 12/16/17 17:30 01/15/18 17:29 Sodium Chloride 1,000 ml @ 100 mls/hr Q10H IV 12/16/17 18:30 01/15/18 18:29 12/17/17 04:34 Ceci Fisher M.D. Dec 17, 2017 13:50
[2017-12-17] MEDS ORDERED: cefTRIAXone 1 GM in D5W 50 ML IVPB SCH (14:00)
[2017-12-17] MEDS ORDERED: GLIPIZIDE5 MG ORAL ×2 (14:54→15:04)
[2017-12-17] MEDS ORDERED: JANUVIA100 MG ORAL (14:54)
[2017-12-17] MEDS ORDERED: GABAPENTIN100 MG ORAL (14:54)
--- NOTE | 2017-12-17 14:55 | Discharge Instructions ---
Discharge Instructions Discharge Instructions Follow up with: Follow-up with primary care doctor in 1 week. Needs close diabetes follow-u Diet: diabetic calorie control Resume Normal Activity?: Yes Activity: resume normal activities For Congestive Heart Failure Reminder Report to your physician any weight gain of 5 pounds or more in one week. Ceci Fisher M.D. Dec 17, 2017 14:55
[2017-12-17] MEDS ORDERED: ACYCLOVIR800 MG ORAL (15:04)
[2017-12-17 16:00] VITALS: BP 128/74
--- NOTE | 2017-12-18 10:33 | Discharge Summary ---
Discharge Summary Discharge Summary Discharge Summary DATE OF ADMISSION: 12/16/2017 DATE OF DISCHARGE: 12/17/2017 CONSULTANTS: Dr. Mykel Fox BRIEF HOSPITAL COURSE: Patient is a 52-year-old female who presented from home after increased fever as well as bilateral leg pain. The patient reported onset cough fever on the morning of admission, she reported increased labial rash. She had bilateral lower extremity pain. She denied any allergies to antibiotics. She has medical history significant for diabetes mellitus and hypertension. On evaluation at ED, temperature was 100.1. Chest x-ray showed no evidence of acute infiltrate or cardiomegaly. Blood work was without leukocytosis, lactic acid 2.9. EKG was in normal sinus rhythm. Influenza screen was negative. She was admitted to telemetry for evaluation of fever. She was placed on Rocephin and Flagyl empirically. She also has possible herpes simplex virus lesion on the lower lip. She was given acyclovir. She was seen by infectious disease specialist. Urinalysis fairly benign. Chest x-ray was negative. Blood cultures did not isolate any growth. She eventually defervescence. There was no leukocytosis. Repeat lactic acid was 1.2. Patient was eventually cleared for discharge home. FINAL DIAGNOSES: Fever possibly viral syndrome Diabetes Hypertension DISPOSITION: Patient was discharged home. DISCHARGE MEDICATIONS: Refer to Discharge Medication List. DISCHARGE INSTRUCTIONS: Follow up with PCP in a week. I have been assigned to dictate discharge summary on this account, and I was not involved in the patient's management. Tatiana Hubbard NP Dec 18, 2017 10:33
== END 2017-12-17 16:52 | disposition home or self-care (01) | DRG 866 ==
LOC: EMR 15:03 → 2E 16:48 → EDBEDREQ 17:15
DX: B34.9 Viral infection, unspecified (principal); R50.9 Fever, unspecified; E11.9 Type 2 diabetes mellitus without complications; I10 Essential (primary) hypertension; Z88.8 Allergy status to other drugs, medicaments and biological substances; R00.0 Tachycardia, unspecified; B00.1 Herpesviral vesicular dermatitis
CPT/HCPCS: 36415; 36600; 71045; 80048; 80053; 80076; 81003; 82306; 82550; 82607; 82746; 82803; 82962; 83036; 83605; 83615; 83690; 83735; 83880; 84443; 84484; 85025; 86710; 87040; 93005; 94640; 94664; J1815; J7620; J8499; S5561

== ENCOUNTER 2018-07-12 08:28 | Emergency (ER) | payer OTHER ==
[~2018-07-12] VITALS: Ht 157.5 cm; Wt 83.9 kg
[~2018-07-12 08:28] MED LIST changes: +ACYCLOVIR800 MG ORAL; +GABAPENTIN100 MG ORAL; +GLIPIZIDE5 MG ORAL; +IBUPROFEN400 M1 PO; +JANUVIA100 MG ORAL; +NKM; +UNOBMED
[2018-07-12 08:44] VITALS: BP 151/93
[2018-07-12] MEDS ORDERED: Morphine Sulfate 4mg/ml Inj (IV/IM USE ONLY) IVP ONE (08:45)
[2018-07-12] MEDS ORDERED: Ketorolac 30mg Inj IV ONE (08:45)
[2018-07-12] MEDS ORDERED: AMLODIPINE BESYL5 MG ORAL (08:50)
[2018-07-12] MEDS ORDERED: METFORMIN HCL500 M1 ORAL (08:50)
[2018-07-12] MEDS ORDERED: Isovue-300 100ml vial INJ PRN (09:00)
[2018-07-12 09:12] LABS: APPEARANCE,URINE CLEAR; BILIRUBIN, URINE NEGATIVE (NEGATIVE); COLOR,URINE PALE YELLOW; GLUCOSE, URINE (UA) NEGATIVE (NEGATIVE); KETONES,URINE 1+ (NEGATIVE); LEUKOCYTE ESTERASE ,URINE NEGATIVE (NEGATIVE); NITRITE,URINE NEGATIVE (NEGATIVE); PH,URINE 6.5 (4.5-8.0); PROTEIN,URINE NEGATIVE (NEGATIVE); UROBILINOGEN,URINE NORMAL MG/DL (0.0-1.0)
--- NOTE | 2018-07-12 09:17 | Emergency Room Report ---
History of Present Illness General Chief Complaint: Abdominal Pain Source: Patient Present Illness HPI Patient present with complaints of pain to the past 2 weeks Mainly starting in the left flank area Now there is increased radiation to the left lower and right lower abdomen Increased nausea Denies any obvious fevers denies any chest pain or shortness of breath Pain is 7 out of 10 Sharp with radiation as described Denies any diarrhea Allergies: Coded Allergies: No Known Allergies (Unverified , 07/12/18) Patient History Past Medical History: see triage record Pertinent Family History: none Now: No Para: 185 Reviewed Nursing Documentation: PMH: Agreed; PSxH: Agreed Nursing Documentation-PMH Past Medical History: No History, Except For Hx Cardiac Problems: No Hx Hypertension: Yes Hx Pacemaker: No Hx Asthma: No Hx COPD: No Hx Diabetes: Yes Hx Cancer: No Hx Gastrointestinal Problems: No Hx Dialysis: No Hx Neurological Problems: No Hx Cerebrovascular Accident: No Hx Seizures: No Review of Systems All Other Systems: negative except mentioned in HPI Physical Exam Vital Signs Date Time Temp Pulse Resp B/P (MAP) Pulse Ox O2 Delivery O2 Flow Rate FiO2 07/12/18 08:31 98.1 82 20 130/86 96 Room Air Sp02 EP Interpretation: reviewed, normal General Appearance: mild distress - In acute pain Head: normocephalic, atraumatic Eyes: bilateral eye PERRL, bilateral eye EOMI ENT: hearing grossly normal, normal pharynx, TMs + canals normal, uvula midline Neck: full range of motion, supple, no meningismus, no bony tend Respiratory: lungs clear, normal breath sounds, no rhonchi, no respiratory distress, no retraction, no accessory muscle use Cardiovascular #1: normal peripheral pulses, regular rate, rhythm, no edema, no gallop, no JVD, no murmur Gastrointestinal: normal bowel sounds, non tender - On palpation however subjectively left lower quadrant pain, and left upper quadrant, soft, no mass, no organomegaly, non-distended, no guarding, no hernia, no pulsatile mass, no rebound Genitourinary: no CVA tenderness Musculoskeletal: normal inspection Neurologic: oriented x3, responsive, marketing research analyst III-XII nml as tested, motor strength/ tone normal, sensory intact Psychiatric: mood/affect normal Skin: normal color, no rash, warm/dry, palpation normal Lymphatic: normal inspection, no adenopathy Medical Decision Making Diagnostic Impression: Primary Impression: Abdominal pain ER Course With the history exam and presentation, multiple differentials considered, including but not limited to appendicitis, gastritis, cholecystitis, diverticulitis Given the patient's level of discomfort initially CT imaging was also obtained No obvious acute pathology is seen patient's blood work is appropriate On reevaluation patient is resting comfortably without any signs of acute distress And will have initial conservative outpatient trial Labs Test 07/12/18 08:50 White Blood Count 7.7 K/UL (4.8-10.8) Red Blood Count 4.62 M/UL (4.20-5.40) Hemoglobin 13.2 G/DL (12.0-16.0) Hematocrit 40.0 % (37.0-47.0) Mean Corpuscular Volume 87 FL (80-99) Mean Corpuscular Hemoglobin 28.5 PG (27.0-31.0) Mean Corpuscular Hemoglobin Concent 32.9 G/DL (32.0-36.0) Red Cell Distribution Width 12.4 % (11.6-14.8) Platelet Count 285 K/UL (150-450) Mean Platelet Volume 7.1 FL (6.5-10.1) Neutrophils (%) (Auto) 66.5 % (45.0-75.0) Lymphocytes (%) (Auto) 26.0 % (20.0-45.0) Monocytes (%) (Auto) 4.5 % (1.0-10.0) Eosinophils (%) (Auto) 2.3 % (0.0-3.0) Basophils (%) (Auto) 0.8 % (0.0-2.0) Urine Color Pale yellow Urine Appearance Clear Urine pH 6.5 (4.5-8.0) Urine Specific [place] 1.010 (1.005-1.035) Urine Protein Negative (NEGATIVE) Urine Glucose (UA) Negative (NEGATIVE) Urine Ketones 1+ (NEGATIVE) Urine Blood Negative (NEGATIVE) Urine Nitrite Negative (NEGATIVE) Urine Bilirubin Negative (NEGATIVE) Urine Urobilinogen Normal MG/DL (0.0-1.0) Urine Leukocyte Esterase Negative (NEGATIVE) Sodium Level 140 MMOL/L (136-145) Potassium Level 3.4 MMOL/L (3.5-5.1) Chloride Level 103 MMOL/L (98-107) Carbon Dioxide Level 28 MMOL/L (21-32) Anion Gap 9 mmol/L (5-15) Blood Urea Nitrogen 11 mg/dL (7-18) Creatinine 0.5 MG/DL (0.55-1.30) Estimat Glomerular Filtration Rate > 60 mL/min (>60) Glucose Level 148 MG/DL (74-106) Calcium Level 8.9 MG/DL (8.5-10.1) Total Bilirubin 0.3 MG/DL (0.2-1.0) Aspartate Amino Transf (AST/SGOT) 18 U/L (15-37) Alanine Aminotransferase (ALT/SGPT) 28 U/L (12-78) Alkaline Phosphatase 125 U/L (46-116) Total Protein 7.8 G/DL (6.4-8.2) Albumin 3.6 G/DL (3.4-5.0) Globulin 4.2 g/dL Albumin/Globulin Ratio 0.9 (1.0-2.7) Lipase 175 U/L (73-393) CT/MRI/US Diagnostic Results CT/MRI/US Diagnostic Results : Impression CT abdomen pelvisImpression: Limited assessment of the GI tract, due to lack of enteric contrast administration No definite acute abnormality Fatty liver Surgically absent uterus Last Vital Signs Date Time Temp Pulse Resp B/P (MAP) Pulse Ox O2 Delivery O2 Flow Rate FiO2 07/12/18 08:44 98.1 75 20 151/93 96 Room Air Status: improved Disposition: HOME, SELF-CARE Condition: Improved Scripts Famotidine (PEPCID AC) 20 Mg Tablet 20 MG PO DAILY, #10 TAB Prov: Donny Ward DO 07/12/18 Referrals: MARIMAR PEDRAZA,REFERRING (PCP) Additional Instructions: Patient is provided with the discharge instructions notified to follow up with primary doctor in the next 2-3 days otherwise return to the er with any worsening symptoms. Please note that this report is being documented using [employer] technology. This can lead to erroneous entry secondary to incorrect interpretation by the dictating instrument. Donny Ward DO Jul 12, 2018 09:17
[2018-07-12 09:20] LABS: BASOPHILS % (AUTO) 0.8 % (0.0-2.0); EOSINOPHILS % (AUTO) 2.3 % (0.0-3.0); HEMOGLOBIN 13.2 G/DL (12.0-16.0); MEAN CORPUSCULAR VOLUME 87 FL (80-99); MONOCYTES % (AUTO) 4.5 % (1.0-10.0); NEUTROPHILS % (AUTO) 66.5 % (45.0-75.0); PLATELET COUNT 285 K/UL (150-450); RED BLOOD COUNT 4.62 M/UL (4.20-5.40); RED CELL DISTRIBUTION WIDTH 12.4 % (11.6-14.8); WHITE BLOOD COUNT 7.7 K/UL (4.8-10.8)
[2018-07-12 09:29] LABS: ANION GAP 9 mmol/L (5-15); BLOOD UREA NITROGEN 11 mg/dL (7-18); CALCIUM 8.9 MG/DL (8.5-10.1); CARBON DIOXIDE 28 MMOL/L (21-32); CHLORIDE 103 MMOL/L (98-107); CREATININE 0.5 MG/DL (0.55-1.30); POTASSIUM 3.4 MMOL/L (3.5-5.1); SODIUM 140 MMOL/L (136-145)
[2018-07-12 09:33] LABS: ALANINE AMINOTRANSFERASE 28 U/L (12-78); ALBUMIN 3.6 G/DL (3.4-5.0); ALBUMIN/GLOBULIN RATIO 0.9 (1.0-2.7); ALKALINE PHOSPHATASE 125 U/L (46-116); ASPARTATE AMINO TRANSFERASE 18 U/L (15-37); BILIRUBIN,TOTAL 0.3 MG/DL (0.2-1.0)
--- NOTE | 2018-07-12 11:01 | Diagnostic Imaging Report ---
Clinical Indication: Abdominal pain, nausea, left flank and left lower chest pain Technique: No oral contrast utilized, per emergency room physician request IV administration nonionic contrast. Venous phase spiral acquisition obtained through the abdomen and pelvis. Multiplanar reconstructions were generated. Total dose length product 1012.65 mGycm. CTDIvol(s) 19.75 mGy. Dose reduction achieved using automated exposure control Comparison: none Findings: No evidence of diverticulosis or diverticulitis. The appendix is normal. Abundant stool is seen in the proximal colon. No small bowel distention. No free or loculated intraperitoneal gas or fluid is evident. The distal esophagus, stomach, duodenum are unremarkable. The liver demonstrates diffuse mild hypoattenuation, consistent with fatty change. No focal abnormality. The gallbladder, bile ducts, pancreas, spleen, adrenals, kidneys are unremarkable. No renal or ureteral calculi, hydronephrosis, or hydroureter. No pelvic mass or adenopathy. The uterus is not visualized, presumed surgically absent. The included lung bases demonstrate some atelectasis and possibly some scarring. The bones demonstrate degenerative proliferative changes of the thoracic and lumbar spine. Impression: Limited assessment of the GI tract, due to lack of enteric contrast administration No definite acute abnormality Fatty liver Surgically absent uterus The CT scanner at [facility] is accredited by the [employer] and the scans are performed using protocols designed to limit radiation exposure to as low as reasonably achievable to attain images of sufficient resolution adequate for diagnostic evaluation.
[2018-07-12 11:50] VITALS: BP 102/54
[2018-07-12] MEDS ORDERED: PEPCID AC20 M2 PO (12:03)
[2018-07-12 12:10] VITALS: BP 102/54
== END 2018-07-12 12:10 | disposition home or self-care (01) ==
LOC: EMR 08:56
DX: R10.32 Left lower quadrant pain (principal); R10.12 Left upper quadrant pain; K76.0 Fatty (change of) liver, not elsewhere classified; R11.0 Nausea; I10 Essential (primary) hypertension; E11.9 Type 2 diabetes mellitus without complications; R07.89 Other chest pain; Z90.710 Acquired absence of both cervix and uterus
CPT/HCPCS: 36415; 74177; 80053; 81003; 83690; 85025; 96374; 96375; 99284; J1885; J2270; J2405; Q9967

== ENCOUNTER 2018-10-04 20:46 | Inpatient (IN) | payer OTHER ==
[~2018-10-04] VITALS: Ht 149.9 cm; Wt 81.6 kg
[~2018-10-04 20:46] MED LIST changes: +AMLODIPINE BESYL5 MG ORAL; +METFORMIN HCL500 M1 ORAL; +PEPCID AC20 M2 PO
--- NOTE | 2018-10-04 21:03 | Emergency Room Report ---
History of Present Illness General Chief Complaint: Abdominal Pain Source: Patient Present Illness HPI This is a 53-year-old female with a history diabetes. She presents with chief complaint of fever and body pain. also with coughing with productive of sputum. Onset this morning. She has nausea and vomiting. No diarrhea. [place] weak and tired. Has not anything for it. Denies any trauma. Pain is 10 out of 10. No other complaint. Allergies: Coded Allergies: No Known Allergies (Unverified , 07/12/18) Patient History Past Medical History: see triage record, old chart reviewed, DM Past Surgical History: other Pertinent Family History: none Social History: Denies: smoking Now: No Immunizations: other Reviewed Nursing Documentation: PMH: Agreed; PSxH: Agreed Nursing Documentation-PMH Past Medical History: No History, Except For Hx Cardiac Problems: No Hx Hypertension: Yes Hx Pacemaker: No Hx Asthma: No Hx COPD: No Hx Diabetes: Yes Hx Cancer: No Hx Gastrointestinal Problems: No Hx Dialysis: No Hx Neurological Problems: No Hx Cerebrovascular Accident: No Hx Seizures: No Review of Systems Constitutional: Reports: fever, malaise, weakness Eye: Denies: eye pain, blurred vision ENT: Denies: ear pain, nose congestion, throat swelling Respiratory: Reports: cough, shortness of breath Cardiovascular: Denies: chest pain, palpitations Gastrointestinal: Reports: nausea, vomiting; Denies: abdominal pain, diarrhea Musculoskeletal: Reports: joint swelling, muscle pain; Denies: back pain, joint pain Skin: Denies: rash Neurological: Denies: headache, numbness Endocrine: Denies: increased thirst, increased urine Hematologic/Lymphatic: Denies: easy bruising All Other Systems: negative except mentioned in HPI Physical Exam vitals with fever Sp02 EP Interpretation: reviewed, normal General Appearance: well appearing, no apparent distress, alert Head: normocephalic, atraumatic Eyes: bilateral eye PERRL, bilateral eye EOMI ENT: hearing grossly normal, normal pharynx Neck: full range of motion, supple, no meningismus Respiratory: chest non-tender, rhonchi Cardiovascular #1: regular rate, rhythm, no murmur Gastrointestinal: normal bowel sounds, non tender, no mass, no organomegaly, no bruit, non-distended Musculoskeletal: back normal, gait/station normal, normal range of motion Psychiatric: mood/affect normal Skin: warm/dry Medical Decision Making Diagnostic Impression: Primary Impression: Sepsis Qualified Codes: A41.9 - Sepsis, unspecified organism Additional Impressions: CAP (community acquired pneumonia) Qualified Codes: J18.9 - Pneumonia, unspecified organism Influenza-like illness ER Course Patient with sepsis, most likely secondary to pneumonia. No evidence of any PE , ACS, dissection to name a few. Even though influenza was negative, I treat her with Tamiflu because she has a history of diabetes and was hypoxic. I discussed the case with Dr. Youngblood who will admit. Lab Results Impression labs with elevated lactic EKG Diagnostic Results Rate: tachycardiac Rhythm: NSR ST Segments: other - NSST changes Rhythm Strip Diag. Results EP Interpretation: yes Rate: 120 Rhythm: NSR, no PVC's, no ectopy Chest X-Ray Diagnostic Results Chest X-Ray Diagnostic Results : Chest X-Ray Ordered: Yes # of Views/Limited/Complete: 1 View Indication: Shortness of Breath EP Interpretation: Yes Interpretation: no effusion, no pneumothorax, other - b/l interstial infiltrates Impression: Other - PNA Electronically Signed by: Casper Winters MD CT/MRI/US Diagnostic Results CT/MRI/US Diagnostic Results : Imaging Test Ordered: CT chest Impression Read by radiologist. Negative for PE. Atelectasis at the bases. Status: improved Disposition: ADMITTED INPATIENT Condition: Serious Casper Winters MD Oct 04, 2018 21:03
[2018-10-04] MEDS ORDERED: Acetaminophen 500mg (ES) tab ORAL ONE (21:15)
[2018-10-04] MEDS ORDERED: Ketorolac 30mg Inj IV ONE (21:15)
--- NOTE | 2018-10-04 21:15 | NUR ---
ED Nurse Note: RECIEVED PT FROM HOME, ON GURNEY, AWAKE, ALERT AND ORIETNED X 4, PT IS CRYING AND C/O HAVING HEADACHE WITH NAUSEA, VOMITING AND FEVER FOR PAST 3 DAYS, ALSO WITH BODY ACHES AND MILD COUGH, PT IS VERY WEAK, ASSISTED TO GOWNING AND PLACED ON MONITORING, PT FEELS VERY HOT TO TOUCH, TEMP TAKEN, =101.9, AT BEDSIDE AND INFORMED IMMEDIATELY, PT DENEIS CP, MILD SOB NOTED ON EXERTION, PT ALSO ACTIVELY VOMITING X 1 HERE, WILL RESUME CARE ORDERED AND CONTINUE TO CLOSELY MONITOR.
[2018-10-04 21:50] LABS: ANION GAP 13 mmol/L (5-15); BLOOD UREA NITROGEN 7 mg/dL (7-18); CARBON DIOXIDE 25 MMOL/L (21-32); CHLORIDE 100 MMOL/L (98-107); CREATININE 0.9 MG/DL (0.55-1.30); SODIUM 138 MMOL/L (136-145)
[2018-10-04 21:54] LABS: ALANINE AMINOTRANSFERASE 33 U/L (12-78); ALBUMIN 3.7 G/DL (3.4-5.0); ALBUMIN/GLOBULIN RATIO 0.9 (1.0-2.7); ALKALINE PHOSPHATASE 166 U/L (46-116); ASPARTATE AMINO TRANSFERASE 26 U/L (15-37); BILIRUBIN,TOTAL 0.5 MG/DL (0.2-1.0)
[2018-10-04 22:03] LABS: BASOPHILS % (AUTO) 0.4 % (0.0-2.0); HEMATOCRIT 42.7 % (37.0-47.0); LYMPHOCYTES % (AUTO) 14.2 % (20.0-45.0); MEAN CORPUSCULAR VOLUME 88 FL (80-99); MONOCYTES % (AUTO) 4.2 % (1.0-10.0); NEUTROPHILS % (AUTO) 80.3 % (45.0-75.0); PLATELET COUNT 224 K/UL (150-450); RED BLOOD COUNT 4.87 M/UL (4.20-5.40); RED CELL DISTRIBUTION WIDTH 13.3 % (11.6-14.8); WHITE BLOOD COUNT 9.2 K/UL (4.8-10.8)
[2018-10-04] MEDS ORDERED: Azithromycin 250mg tab ORAL ONE (22:15)
[2018-10-04] MEDS ORDERED: cefTRIAXone 1 GM in NS 55 ML IVPB ONE (22:15)
[2018-10-04] MEDS ORDERED: Isovue-370 150ml vial INJ PRN (22:30)
[2018-10-04] MEDS ORDERED: Oseltamivir 75mg cap ORAL ONE (22:30)
[2018-10-04] MEDS ORDERED: Morphine Sulfate 4mg/ml Inj (IV/IM USE ONLY) IVP ONE (22:45)
--- NOTE | 2018-10-04 23:00 | NUR ---
ED Nurse Note: PT IS CURRENTLY BEING TAKEN TO IMAGING FOR CT-SCAN, WILL RESUME CARE WHEN PT RETURNS TO DEPT. PT SON AT BEDSIDE.
[2018-10-04 23:44] LABS: BILIRUBIN, URINE NEGATIVE (NEGATIVE); COLOR,URINE PALE YELLOW; GLUCOSE, URINE (UA) NEGATIVE (NEGATIVE); KETONES,URINE 1+ (NEGATIVE); NITRITE,URINE NEGATIVE (NEGATIVE); PH,URINE 7 (4.5-8.0); PROTEIN,URINE 1+ (NEGATIVE); UROBILINOGEN,URINE NORMAL MG/DL (0.0-1.0)
--- NOTE | 2018-10-05 | NUR ---
ED Nurse Note: PT RETURNED FROM IMAGING, PT IS AWAKE AND ALERT, MEDS GIVEN FOR PAIN EFFECTIVE DECREASING LEVEL TO 5/10 IN ABDOMEN AND REMSINS WITH HEADACHE ALSO, NO CP, NO SOB, PT REPLACED ON CARDIAC MONITORING, PT IS TO BE ADMITTED WILL PREPARE FOR ADMISSION, PT TOLERATING IV ANTIBIOTICS WELL, NO S/S OF ADVERSE REACTION NOTED.
[2018-10-05 00:11] LABS: APPEARANCE,URINE CLEAR; LEUKOCYTE ESTERASE ,URINE 1+ (NEGATIVE)
[2018-10-05 00:15] VITALS: BP 110/63
--- NOTE | 2018-10-05 00:43 | NUR ---
ED Nurse Note: PT HAS ROOM FOR HOSPITAL ADMISSION, REPORT CALLED TO [facility] ON UNIT, PT IS IN BED RESTING, AROUSES EASILY TO VERBAL STIMULI, PT BELONGINGS LIST COMPLETED, VERBAL REPORT GIVEN, PT IV SITE INTACT AND PATENT, NO SOB OR LABORED BREATHING, WAITING FOR ADMISSION PACKET TO TAKE TO FLOOR BED, WILL SEND PT VIA GURNEY WITH ER-TECH.
--- NOTE | 2018-10-05 01:30 | NUR ---
NURSE NOTES: Received patient from ER, report given by Juanis DYER, patient is ambulatory, speaks Kinyarwanda, no acute distress noted, oriented to the room, called dr. Youngblood for admitting orders. Call light is within reach, bed is in low position, locked and alarm is on.
--- NOTE | 2018-10-05 02:49 | NUR ---
NURSE NOTES: RN calls [address] Youngblood for admitting order, CN is aware. Left VM
[2018-10-05 04:43] VITALS: BP 126/78
[2018-10-05] MEDS ORDERED: NovoLOG Insulin Flexpen SUBQ SCH (06:30)
[2018-10-05] MEDS: NovoLOG Insulin Flexpen SUBQ SCH ×4 (06:34→20:33)
[2018-10-05] MEDS: Albuterol/Ipratropium 3ml neb HHN SCH ×5 (07:00→23:00)
--- NOTE | 2018-10-05 07:20 | NUR ---
HAND-OFF: Report given to Almita DYER.
--- NOTE | 2018-10-05 07:30 | NUR ---
NURSE NOTES: Received patient in bed, awake, alert and oriented x4. Not in acute respiratory/cardiac distress. Afebrile @ this time. Art SOB. Bed is in lowest position and locked. Call light within reach. Will continue plano of care.
[2018-10-05 08:00] VITALS: BP 142/88
[2018-10-05] MEDS: Heparin 5000 units/ml inj SUBQ SCH ×2 (08:26→20:27)
--- NOTE | 2018-10-05 10:52 | Diagnostic Imaging Report ---
ndication: Shortness of breath Technique: IV administration nonionic contrast. Spiral acquisitions obtained from the lung bases to the lung apices. Multiplanar and 3-D reconstructions were generated. Total dose length product 1345.47 mGycm. CTDIvol(s) 32.86,32.37 mGy. Dose reduction achieved using automated exposure control Comparison: none Findings: There is good quality opacification of the pulmonary arteries. No intraluminal filling defects or other findings to suggest acute pulmonary embolus demonstrated. Normal caliber pulmonary arteries. No evidence of right ventricular dilatation. The heart size is normal, but there is suggestion of left ventricular vascular hypertrophy. Scarring and/or atelectasis is seen at both lung bases as well as within the left upper lobe. No focal consolidation, effusions, or masses. A 2 mm nodule is seen in the right middle lobe, image 43 of series 8. May be calcified but this is far from certain. No pericardial effusion. No mediastinal or hilar mass or adenopathy. The included portion of the thyroid is unremarkable. Unremarkable esophagus. No axillary or chest wall mass or adenopathy demonstrated. Included upper abdominal anatomy is unremarkable. Impression: Negative for evidence of acute pulmonary embolus Bilateral basilar atelectasis and/or scarring Evidence of left ventricular muscular hypertrophy The above findings are in agreement with the preliminary report provided overnight by [facility] teleradiology service 2 mm right middle lobe nodule. No further follow-up necessary there is no significant smoking history or other risk factors for lung carcinoma. Recommend 6-12 month follow-up CT if there are risk factors. This finding was discussed by phone with Dr. Youngblood at the time of interpretation The CT scanner at [facility] is accredited by the [employer] and the scans are performed using protocols designed to limit radiation exposure to as low as reasonably achievable to attain images of sufficient resolution adequate for diagnostic evaluation.
--- NOTE | 2018-10-05 11:44 | Diagnostic Imaging Report ---
Indication: Shortness of breath Technique: One view of the chest Comparison: 12/17/2017 Findings: Inspiration is suboptimal. There is mild interstitial congestion bilaterally. No focal airspace consolidation. No definite effusions. The heart is mildly enlarged. Impression: Hypoventilatory exam Cardiomegaly with mild interstitial congestion bilaterally
[2018-10-05] MEDS ORDERED: Isovue-300 100ml vial INJ PRN (11:45)
[2018-10-05 12:00] VITALS: BP 121/79
--- NOTE | 2018-10-05 12:10 | NUR ---
NURSE NOTES: RN tried to get the consent for CT of abdomen/pelvis with contrast. Patient stated that she had episodes of nausea,vomiting and dizziness in the past when she had contrast through IV. RN paged Dr. Saha and awaiting for return call.
--- NOTE | 2018-10-05 12:40 | NUR ---
NURSE NOTES: RN spoke to patient about oral and IV contrast and patient said " I do not like to drink anything. I prefer IV contrast as long as it is injecting it slowly." RN spoke to Dr. Saha and relayed. Dr. Saha said ok to give IV contrast only, no po contrast. Patient is on NPO.CT dept made aware.
--- NOTE | 2018-10-05 12:55 | Diagnostic Imaging Report ---
Indication: Abnormal chest sounds Technique: One view of the chest Comparison: 10/04/2018 Findings: The heart is enlarged. There is bilateral interstitial congestion, similar to the previous exam. No new infiltrates. There may be a small amount of pleural fluid on the right Impression: Cardiomegaly and interstitial congestion, unchanged over one Possible small right pleural effusion
--- NOTE | 2018-10-05 13:10 | NUR ---
NURSE NOTES: Patient totally understood what contrast is and consented to CT of abdomen/pelvis with contrast.
--- NOTE | 2018-10-05 15:00 | Consultation ---
DATE OF CONSULTATION: 10/05/2018 PULMONARY CONSULTATION CONSULTING PHYSICIAN: Simon Hicks M.D. HISTORY OF PRESENT ILLNESS: This is a 53-year-old female with history of diabetes mellitus. She came to the hospital with body aches, fever, and headache. She also reports cough with phlegm production and x-ray of the chest was done in the ER, which shows bibasilar infiltrates. The patient's CBC was normal with normal white cell count. Her lactic acid was elevated. She was admitted to the hospital with diagnosis of bilateral pneumonia. PAST MEDICAL HISTORY: Diabetes mellitus. The patient has a history of hypertension as well. ALLERGIES: None reported. REVIEW OF SYSTEMS: Denies any headaches, hematemesis, melena, hematochezia, night sweats or weight loss. MEDICATIONS: List of home medications includes insulin. PHYSICAL EXAMINATION: GENERAL: Reveals a 53-year-old female. HEENT: Unremarkable. CHEST: Clear breath sounds bilaterally. HEART: Normal heart sounds. ABDOMEN: Soft. EXTREMITIES: There is no edema. NEUROLOGIC: Nonfocal. LABORATORY DATA: Lab testing, discussed above. X-ray, discussed above. IMPRESSION: Bibasilar pneumonia, suspect viral, possibly influenza. DISCUSSION: Agree with admission and care. Continue supportive care with Tylenol, oxygen, and pulmonary hygiene. DVT prophylaxis. . The patient is also on azithromycin and Rocephin, which I will continue. I will also resume Tamiflu, she got the first dose in the ER. We will resume it and she will be discharged home in the next 24 to 48 hours. Simon Hicks M.D. DR: THAIS JOB#: [id number] CC:
--- NOTE | 2018-10-05 15:18 | NUR ---
*-* INSURANCE *-* ALL CLINICALS HAVE BEEN FAXED TO: [facility] TRK#[id number] NCM: RICKIE P: [phone] OPT 3 F: [phone]
[2018-10-05 16:00] VITALS: BP 155/87
--- NOTE | 2018-10-05 16:00 | Consultation ---
DATE OF CONSULTATION: 10/05/2018 INFECTIOUS DISEASES CONSULTATION CONSULTING PHYSICIAN: Yas Saha M.D. REFERRING PHYSICIAN: Rian Youngblood M.D. REASON FOR CONSULTATION: Pneumonia. HISTORY OF PRESENT ILLNESS: The patient is a 53-year-old lady with history of diabetes and hypertension who comes in with fever along with cough, along with abdominal pain. She was thought to have a possible pneumonia and an Infectious Diseases consultation has been obtained for antibiotics. PAST MEDICAL HISTORY: 1. History of diabetes. 2. History of hypertension. MEDICATIONS: As an inpatient, she is on ceftriaxone, azithromycin, Tamiflu, subcutaneous heparin, albuterol ipratropium, insulin, Zofran, Tylenol, iopamidol. ALLERGIES: No known drug allergies. SOCIAL HISTORY: No history of smoking, alcohol, or drug use. FAMILY HISTORY: Noncontributory. REVIEW OF SYSTEMS: RESPIRATORY: She had fever and chills. She has a cough. No shortness of breath or chest pain. CARDIAC: No chest pain. No palpitation. No dizziness. No syncope. GASTROINTESTINAL: She had nausea and vomiting. She also complains of abdominal pain. No diarrhea. PHYSICAL EXAMINATION: VITAL SIGNS: Temperature of 98.7, T-max of 101.9, pulse of 96, respiratory rate 20, blood pressure of 142/88, O2 saturation of 97%. HEENT: Pupils equally reactive to light accommodation. Mouth appears clean without thrush. NECK: Supple. No adenopathy. No JVD. CARDIOVASCULAR: Regular rate and rhythm. No murmurs. LUNGS: Clear to auscultation bilaterally. No crackles. No wheezes. ABDOMEN: Soft. There is some suprapubic tenderness. No organomegaly. EXTREMITIES: No cyanosis, no clubbing, no edema. LABORATORY AND DIAGNOSTIC DATA: White count 9.2, hemoglobin 14, hematocrit 42.7, MCV 88, platelet count of 224 with neutrophils of 80%. Sodium 138, potassium 4, chloride 100, bicarb 25, BUN 7, creatinine 0.9, glucose 170, calcium 9. Total bilirubin 0.5, AST 26, ALT 33, alkaline phosphatase 166, total protein 7.8, albumin 3.7, and lipase of 124. UA showing 2 to 4 white cells. Nasal swab was negative for influenza A and B. CT chest angiogram showing negative for pulmonary embolism, bilateral basal atelectasis and scarring noted. There is a right middle lobe nodule. ASSESSMENT: This is a 53-year-old lady with history of diabetes and hypertension, who comes in with fever, cough, as well as nausea and vomiting and is found to have: 1. Possible community-acquired pneumonia versus atypical pneumonia. 2. We would also like to rule out urinary tract infection or diverticulitis as a possibility. 3. Diabetes. 4. Hypertension. PLAN: 1. Continue ceftriaxone and azithromycin. 2. Discontinue Tamiflu. 3. We will order CT abdomen and pelvis. 4. We will order sputum for Gram stain and culture. 5. We will follow up cultures and adjust antibiotics accordingly. I would like to thank, Dr. Youngblood, for this consultation. Yas Saha M.D. DR: Lebron JOB#: [id number] CC: Rian Youngblood M.D.
--- NOTE | 2018-10-05 16:11 | Diagnostic Imaging Report ---
Indications: A new right-sided jaw and neck Technique: Spiral images obtained through the maxillofacial sinuses. No IV contrast utilized. Multiplanar reconstructions were generated.Total dose length product 591 mGycm. CTDIvol(s) 28 mGy. Dose reduction achieved using automated exposure control Comparison: none Findings: A mucous retention cyst is seen within the left maxillary sinus, and a smaller one in the floor the right maxillary sinus. The sinuses are otherwise clear. The maxillary ostia are patent. There is leftward nasal septal deviation and a right-sided cece bullosa. The mastoids are clear. No acute fractures. There is evidence of multiple prior dental extractions. The existing dentition appears to be intact. The mandible is intact and the temporomandibular joints appear normally situated. The visualized cervical spine appears unremarkable. The visualized intracranial structures are unremarkable. The optic globes and retroseptal orbits are unremarkable. The salivary glands appear unremarkable. The upper aerodigestive tract is unremarkable. Impression: Bilateral maxillary sinus mucus retention cysts Incidental findings as noted No acute abnormality The CT scanner at [facility] is accredited by the [employer] and the scans are performed using protocols designed to limit radiation exposure to as low as reasonably achievable to attain images of sufficient resolution adequate for diagnostic evaluation.
--- NOTE | 2018-10-05 16:16 | Diagnostic Imaging Report ---
Clinical Indication: Abdominal pain, diabetes, history of sepsis Technique: No oral contrast utilized, per for physician request IV administration nonionic contrast. Venous phase spiral acquisition obtained through the abdomen and pelvis. Multiplanar reconstructions were generated. Total dose length product 925.99 mGycm. CTDIvol(s) 19.28 mGy. Dose reduction achieved using automated exposure control Comparison: 07/12/2018 Findings: Lack of enteric contrast limits assessment of the GI tract. The appendix is normal. There is colonic diverticulosis. No evidence of diverticulitis. No small bowel distention. No free or loculated intraperitoneal gas or fluid. Distal esophagus, stomach, duodenum are unremarkable. The liver, gallbladder, bile ducts, pancreas, spleen, adrenals, kidneys are all unremarkable. No retroperitoneal or mesenteric mass or adenopathy. No pelvic mass or adenopathy. The uterus is not visualized, presumed surgically absent. The bladder is unremarkable. Previously demonstrated hepatic low attenuation is less striking than on the prior exam The included lung bases demonstrate basilar atelectatic changes and possibly some focal consolidative changes on the right. The bones are unremarkable. Impression: No definite acute or significant abdominal or pelvic abnormality Limited assessment of the GI tract, due to lack of enteric contrast menstruation Colonic diverticulosis. No evidence of diverticulitis Previously demonstrated fatty liver appears to have improved somewhat Bilateral basilar pulmonary atelectatic changes and possibly some right basilar consolidation. Correlate with clinical findings Evidence of prior hysterectomy The CT scanner at [facility] is accredited by the [employer] and the scans are performed using protocols designed to limit radiation exposure to as low as reasonably achievable to attain images of sufficient resolution adequate for diagnostic evaluation.
--- NOTE | 2018-10-05 19:00 | NUR ---
NURSE NOTES: Unable to collect sputum due to patient has no sputum.
--- NOTE | 2018-10-05 19:18 | NUR ---
HAND-OFF: Report given to Lisha.
--- NOTE | 2018-10-05 19:19 | NUR ---
NURSE NOTES: Received patient in bed, awake, alert, oriented, no acute distress at this time, bed is in low position, locked and alarm is on, call light is within reach. Will continue with POC, assess for safety and comfort.
--- NOTE | 2018-10-05 19:51 | NUR ---
CASE MANAGEMENT: REVIEW 53/F PRESENT TO ED FROM HOME CC: ABD PAIN SI: PNA T 101.9 HR 144 RR 21 BP 113/69 SAT 97% ROOM AIR GLUCOSE 170 LACTIC ACID 2.10 ALK PHOS 166 IS: NS IVF BOLUS X1 TYLENOL PO X1 TORADOL IV X1 NS IVF BOLUS X1 AZITHROMYCIN PO X1 TAMIFLU PO X1 PATIENT ADMITTED TO MED/SURG UNIT 10/04/2018 DCP: PATIENT IS FROM HOME
[2018-10-05 20:00] VITALS: BP 146/81
--- NOTE | 2018-10-05 20:30 | History and Physical Report ---
DATE OF ADMISSION: 10/04/2018 REASON FOR ADMISSION: Probable pneumonia. HISTORY OF PRESENT ILLNESS: This is a 53-year-old female with a known history of underlying lung disease. She presented to the emergency room earlier this evening complaining of body aches, fevers, and headache for the past day or two with some nasal discharge. She also developed cough and sputum production over the past day. She had an abnormal x-ray in the emergency room and elevated lactic acid level prompting hospitalization under my care. The patient has not had any other constitutional symptoms, but has had fever intermittently. PAST MEDICAL HISTORY: Type 2 diabetes mellitus and hypertension. ALLERGIES: None. MEDICATIONS: Reviewed and reconciled. SOCIAL HISTORY: Negative for smoking, alcohol, or substance abuse. FAMILY HISTORY: Noncontributory. REVIEW OF SYSTEMS: A 10-point review of systems performed, all systems negative other than noted above. PHYSICAL EXAMINATION: VITAL SIGNS: Afebrile, temperature max 101.9, blood pressure 142/88, heart rate 96, respiratory rate 20, and oxygen saturation 97%. GENERAL: Moderately obese. HEENT: Conjunctivae pink. No rhinorrhea. Mild nasal congestion. Oropharynx clear with no exudate or thrush. NECK: Supple. No adenopathy. LUNGS: With few rhonchi. CARDIAC: Regular rhythm and rate. Normal S1, S2 with no murmur, rub, or gallop. ABDOMEN: Soft, nontender. Mild suprapubic tenderness. No organomegaly. EXTREMITIES: No edema. SKIN: Without rash. LABORATORY DATA: White count 9.2, hemoglobin 14. Urinalysis with 2 to 4 white cells. Nasal swab negative for influenza. CT angiogram of the chest notable for bilateral atelectasis, scarring, but no pulmonary embolism. There is a right middle lobe nodule noted. Albumin 3.7, and lactic acid 2. IMPRESSION: 1. Community-acquired pneumonia. 2. Lactic acidosis. 3. Lung nodule. 4. Type 2 diabetes mellitus. 5. Hypertension. PLAN: 1. Empiric antibiotics. 2. Followup sputum culture. 3. IV fluid hydration. 4. Followup CAT scan in six months. 5. The patient is a nonsmoker. 6. Pulmonary and Infectious Disease consultation. Rian Youngblood M.D. DR: JAMES JOB#: [id number] CC:
--- NOTE | 2018-10-05 20:45 | Progress Note ---
DATE: 10/05/2018 INTERNAL MEDICINE PROGRESS NOTE SUBJECTIVE: The patient still feels poorly. She feels nasal, head, and chest congestion and has cough. She feels weak and has no energy. She was seen in Infectious Disease and Pulmonary consultation and care plan was reviewed and as is. OBJECTIVE: VITAL SIGNS: T-max 100.4, blood pressure 121/79, heart rate 91, respiratory rate 18, presently afebrile, and room air oxygen saturations are 95% to 97%. HEENT: Oropharynx clear with no thrush. NECK: Supple. No adenopathy. LUNGS: With few rhonchi. CARDIAC: Regular rhythm and rate. Normal S1, S2 with no murmur. ABDOMEN: Soft, nontender. Moderately obese. EXTREMITIES: Without edema. DIAGNOSTIC DATA: CT scan of the sinuses, no acute process. Chest x-ray repeated today reveals interstitial infiltrates and possible consolidation. Abdominal CT scan revealed diverticulosis and prior hysterectomy. IMPRESSION: 1. Pneumonia. 2. Diverticulosis. 3. Obesity. 4. Type 2 diabetes mellitus. 5. Hypertension. PLAN: 1. Antimicrobials. 2. Respiratory hygiene. 3. Bronchodilators. 4. DVT prophylaxis. 5. Insulin titration per sliding scale. 6. Antitussives. Rian Youngblood M.D. DR: JAMES JOB#: [id number] CC:
[2018-10-05] MEDS ORDERED: Azithromycin 500 MG in D5W 275 ML IV SCH (21:30)
[2018-10-05] MEDS ORDERED: cefTRIAXone 1 GM in D5W 55 ML IVPB SCH (22:30)
--- NOTE | 2018-10-05 22:53 | NUR ---
NURSE NOTES: Azithromycin was started to be infused at 2130 as patient began to complaint of burning sensation, infusion was stopped and saline was run, IV site is patent and flushes well, CN was made aware. Tried the other IV site on the left site, same reaction, RN tried to run just NS, patient started to complain of discomfort. IV infusion was placed on hold, MD was made aware
[2018-10-06] VITALS: BP 139/78
[2018-10-06] MEDS ORDERED: Azithromycin 250mg tab ORAL ONE (00:45)
[2018-10-06] MEDS: Albuterol/Ipratropium 3ml neb HHN SCH ×4 (03:00→15:00)
[2018-10-06 04:00] VITALS: BP 141/76
[2018-10-06] MEDS: NovoLOG Insulin Flexpen SUBQ SCH ×3 (06:04→17:14)
--- NOTE | 2018-10-06 06:59 | NUR ---
HAND-OFF: Report given to Almtia DYER.
[2018-10-06 07:18] LABS: BASOPHILS % (AUTO) 0.3 % (0.0-2.0); EOSINOPHILS % (AUTO) 0.9 % (0.0-3.0); HEMOGLOBIN 12.3 G/DL (12.0-16.0); LYMPHOCYTES % (AUTO) 26.1 % (20.0-45.0); MEAN CORPUSCULAR VOLUME 88 FL (80-99); MONOCYTES % (AUTO) 8.7 % (1.0-10.0); NEUTROPHILS % (AUTO) 64.2 % (45.0-75.0); PLATELET COUNT 194 K/UL (150-450); RED CELL DISTRIBUTION WIDTH 13.2 % (11.6-14.8); WHITE BLOOD COUNT 4.3 K/UL (4.8-10.8)
--- NOTE | 2018-10-06 07:35 | NUR ---
NURSE NOTES: Received patient in bed, awake, alert and oriented x4. Not in acute respiratory/cardiac distress. Afebrile @ this time. Denies SOB. Patient wants to be disconnected from IV @ this time. Will follow up. Patient can hydrate herself.Bed is in lowest position and locked. Call light within reach. Will continue plan of care.
[2018-10-06 07:41] LABS: ALANINE AMINOTRANSFERASE 40 U/L (12-78); ALBUMIN/GLOBULIN RATIO 0.9 (1.0-2.7); ALKALINE PHOSPHATASE 135 U/L (46-116); ANION GAP 11 mmol/L (5-15); ASPARTATE AMINO TRANSFERASE 30 U/L (15-37); BILIRUBIN,TOTAL 0.4 MG/DL (0.2-1.0); BLOOD UREA NITROGEN 7 mg/dL (7-18); CALCIUM 8.7 MG/DL (8.5-10.1); CARBON DIOXIDE 25 MMOL/L (21-32); CHLORIDE 104 MMOL/L (98-107); CREATININE 0.6 MG/DL (0.55-1.30); SODIUM 140 MMOL/L (136-145)
[2018-10-06 08:00] VITALS: BP 139/95
[2018-10-06] MEDS: Heparin 5000 units/ml inj SUBQ SCH (08:56)
--- NOTE | 2018-10-06 10:00 | Pulmonology Progress Note ---
Assessment/Plan Assessment/Plan IMPRESSION: Bibasilar pneumonia, suspect viral. DISCUSSION: Agree with admission and care. Continue supportive care with Tylenol, oxygen, and pulmonary hygiene. DVT prophylaxis. Continue abx per ID Tamiflu discontinued per ID Will follow Subjective Interval Events: Looking and feeling better Constitutional: Reports: no symptoms HEENT: Repors: no symptoms Respiratory: Reports: no symptoms Cardiovascular: Reports: no symptoms Gastrointestinal/Abdominal: Reports: no symptoms Genitourinary: Reports: no symptoms Allergies: Coded Allergies: No Known Allergies (Unverified , 07/12/18) Objective Last 24 Hour Vital Signs Date Time Temp Pulse Resp B/P (MAP) Pulse Ox O2 Delivery O2 Flow Rate FiO2 10/06/18 08:00 97.9 99 19 139/95 (110) 96 10/06/18 07:48 95 20 98 Room Air 21 10/06/18 07:38 100 20 97 Room Air 21 10/06/18 04:00 99.2 95 18 141/76 (97) 10/06/18 03:42 Room Air 21 10/06/18 03:41 Room Air 21 10/06/18 00:00 98.9 84 16 139/78 (98) 10/05/18 23:45 Room Air 21 10/05/18 23:44 Room Air 21 10/05/18 22:34 Room Air Room Air 10/05/18 20:00 99.5 89 17 146/81 (102) 10/05/18 19:56 90 20 98 Room Air 21 10/05/18 19:45 82 18 96 Room Air 21 10/05/18 19:42 81 18 Room Air 21 10/05/18 16:00 100.0 100 18 155/87 (109) 96 10/05/18 15:02 Room Air 21 10/05/18 15:02 Room Air 21 10/05/18 12:00 98.6 91 18 121/79 (93) 96 10/05/18 10:37 96 20 97 Room Air 21 10/05/18 10:30 36 10/05/18 10:30 102 22 95 Room Air 21 Intake and Output 10/05/18 10/06/18 19:00 07:00 Intake Total 1000 ml 400 ml Balance 1000 ml 400 ml Intake IV Total 1000 ml Other 400 ml # Voids 5 General Appearance: no acute distress HEENT: normocephalic Respiratory/Chest: chest wall non-tender, lungs clear Cardiovascular: normal peripheral pulses, normal rate Abdomen: normal bowel sounds, soft, non tender Microbiology Date/Time Source Procedure Growth Status 10/04/18 21:25 Blood Blood Culture - Preliminary NO GROWTH AFTER 24 HOURS Resulted 10/04/18 21:10 Blood Blood Culture - Preliminary NO GROWTH AFTER 24 HOURS Resulted 10/04/18 21:35 Nasal Nares Influenza Types A,B Antigen (NEO) - Final Complete Laboratory Tests 10/06/18 05:20: White Blood Count 4.3#L, Red Blood Count 4.30, Hemoglobin 12.3, Hematocrit 38.0 , Mean Corpuscular Volume 88, Mean Corpuscular Hemoglobin 28.7, Mean Corpuscular Hemoglobin Concent 32.5, Red Cell Distribution Width 13.2, Platelet Count 194, Mean Platelet Volume 7.3, Neutrophils (%) (Auto) 64.2, Lymphocytes (% ) (Auto) 26.1, Monocytes (%) (Auto) 8.7, Eosinophils (%) (Auto) 0.9, Basophils ( %) (Auto) 0.3, Sodium Level 140, Potassium Level 3.0L, Chloride Level 104, Carbon Dioxide Level 25, Anion Gap 11, Blood Urea Nitrogen 7, Creatinine 0.6, Estimat Glomerular Filtration Rate > 60, Glucose Level 100, Calcium Level 8.7, Total Bilirubin 0.4, Aspartate Amino Transf (AST/SGOT) 30, Alanine Aminotransferase (ALT/SGPT) 40, Alkaline Phosphatase 135H, Pro-B-Type Natriuretic Peptide 85, Total Protein 6.5, Albumin 3.0L, Globulin 3.5, Albumin/ Globulin Ratio 0.9L, Thyroid Stimulating Hormone (TSH) 1.171 Current Medications Medications (Trade) Dose Ordered Sig/Ailyn Route PRN Reason Start Time Stop Time Status Last Admin Dose Admin Acetaminophen (Tylenol) 650 mg Q4H PRN ORAL Mild Pain/Temp > 100.5 10/05/18 03:15 11/04/18 03:14 10/06/18 06:00 Albuterol/ Ipratropium (Albuterol/ Ipratropium) 3 ml Q4HRT HHN 10/05/18 07:00 10/10/18 06:59 10/06/18 07:38 Barium Sulfate (Readi-Cat 2) 450 ml NOW PRN ORAL Radiology Procedure 10/05/18 11:45 10/07/18 11:33 Barium Sulfate (Readi-Cat 2) 450 ml NOW PRN ORAL Radiology Procedure 10/05/18 13:00 10/07/18 12:49 Ceftriaxone Sodium 1 gm/ Dextrose 55 ml @ 110 mls/hr Q24H IVPB 10/05/18 22:30 10/12/18 22:29 Dextrose (Dextrose 50%) 25 ml Q30M PRN IV Hypoglycemia 10/05/18 03:15 11/04/18 03:14 Dextrose (Dextrose 50%) 50 ml Q30M PRN IV Hypoglycemia 10/05/18 03:15 11/04/18 03:14 Heparin Sodium (Porcine) (Heparin 5000 units/ml) 5,000 units EVERY 12 HOURS SUBQ 10/05/18 09:00 11/04/18 08:59 10/06/18 08:56 Insulin Aspart (NovoLOG) BEFORE MEALS AND HS SUBQ 10/05/18 06:30 11/04/18 06:29 10/05/18 20:33 Iopamidol (Isovue-300 100ml) 100 ml NOW PRN INJ Radiology Procedure 10/05/18 11:45 10/07/18 11:44 Iopamidol (Isovue-370 150ml) 150 ml NOW PRN INJ Radiology Procedure 10/04/18 22:30 10/06/18 22:19 Ondansetron HCl (Zofran) 4 mg Q6H PRN IVP Nausea & Vomiting 10/05/18 03:15 11/04/18 03:14 10/05/18 13:03 Sodium Chloride 1,000 ml @ 75 mls/hr [id number] IV 10/05/18 18:17 11/04/18 18:16 10/05/18 18:48 Simon Hicks MD Oct 06, 2018 10:00
--- NOTE | 2018-10-06 10:45 | NUR ---
NURSE NOTES: Given potassium 40MEQ due to potassium of 3.0. Patient also complains that she sometimes has right earache and pain on right side of her jaw. RN assessed patient, no blood or discharge from right ear,no lump on the neck but right jowl is bigger than left side. Maria A was paged. Will continue to monitor.Patient is afebrile.
--- NOTE | 2018-10-06 11:53 | NUR ---
*-* INSURANCE *-* ALL CLINICALS HAVE BEEN FAXED TO: [facility] TRK#[id number] NCM: RICKIE P: [phone] OPT 3 F: [phone]
[2018-10-06 12:00] VITALS: BP 143/99
--- NOTE | 2018-10-06 13:00 | Infectious Diseases Prog Note ---
Assessment/Plan Assessment/Plan A: Pneumonia DM Obesity HPN P; Cpntinue Rocephin Subjective ROS Limited/Unobtainable: No Constitutional: Reports: no symptoms HEENT: Reports: other - thrombing pain in left lower jaw Respiratory: Reports: dry cough Cardiovascular: Reports: no symptoms Gastrointestinal/Abdominal: Reports: no symptoms Genitourinary: Reports: no symptoms Allergies: Coded Allergies: No Known Allergies (Unverified , 07/12/18) Objective Vital Signs Last 24 Hour Vital Signs Date Time Temp Pulse Resp B/P (MAP) Pulse Ox O2 Delivery O2 Flow Rate FiO2 10/06/18 11:22 90 20 98 Room Air 21 10/06/18 11:11 84 20 97 Room Air 21 10/06/18 09:00 Room Air Room Air 10/06/18 08:00 97.9 99 19 139/95 (110) 96 10/06/18 07:48 95 20 98 Room Air 21 10/06/18 07:38 100 20 97 Room Air 21 10/06/18 04:00 99.2 95 18 141/76 (97) 10/06/18 03:42 Room Air 21 10/06/18 03:41 Room Air 21 10/06/18 00:00 98.9 84 16 139/78 (98) 10/05/18 23:45 Room Air 21 10/05/18 23:44 Room Air 21 10/05/18 22:34 Room Air Room Air 10/05/18 20:00 99.5 89 17 146/81 (102) 10/05/18 19:56 90 20 98 Room Air 21 10/05/18 19:45 82 18 96 Room Air 21 10/05/18 19:42 81 18 Room Air 21 10/05/18 16:00 100.0 100 18 155/87 (109) 96 10/05/18 15:02 Room Air 21 10/05/18 15:02 Room Air 21 Height (Feet): 4 Height (Inches): 11.00 Weight (Pounds): 180 General Appearance: no acute distress HEENT: mucous membranes moist Respiratory/Chest: lungs clear Cardiovascular: normal rate Abdomen: soft, non tender Extremities: no edema Skin: no rash Neurologic/Psychiatric: alert, oriented x 3, responsive Microbiology Date/Time Source Procedure Growth Status 10/04/18 21:25 Blood Blood Culture - Preliminary NO GROWTH AFTER 24 HOURS Resulted 10/04/18 21:10 Blood Blood Culture - Preliminary NO GROWTH AFTER 24 HOURS Resulted 10/04/18 21:35 Nasal Nares Influenza Types A,B Antigen (NEO) - Final Complete Laboratory Tests Test 10/06/18 05:20 White Blood Count 4.3 K/UL (4.8-10.8) #L Red Blood Count 4.30 M/UL (4.20-5.40) Hemoglobin 12.3 G/DL (12.0-16.0) Hematocrit 38.0 % (37.0-47.0) Mean Corpuscular Volume 88 FL (80-99) Mean Corpuscular Hemoglobin 28.7 PG (27.0-31.0) Mean Corpuscular Hemoglobin Concent 32.5 G/DL (32.0-36.0) Red Cell Distribution Width 13.2 % (11.6-14.8) Platelet Count 194 K/UL (150-450) Mean Platelet Volume 7.3 FL (6.5-10.1) Neutrophils (%) (Auto) 64.2 % (45.0-75.0) Lymphocytes (%) (Auto) 26.1 % (20.0-45.0) Monocytes (%) (Auto) 8.7 % (1.0-10.0) Eosinophils (%) (Auto) 0.9 % (0.0-3.0) Basophils (%) (Auto) 0.3 % (0.0-2.0) Sodium Level 140 MMOL/L (136-145) Potassium Level 3.0 MMOL/L (3.5-5.1) L Chloride Level 104 MMOL/L (98-107) Carbon Dioxide Level 25 MMOL/L (21-32) Anion Gap 11 mmol/L (5-15) Blood Urea Nitrogen 7 mg/dL (7-18) Creatinine 0.6 MG/DL (0.55-1.30) Estimat Glomerular Filtration Rate > 60 mL/min (>60) Glucose Level 100 MG/DL (74-106) Calcium Level 8.7 MG/DL (8.5-10.1) Total Bilirubin 0.4 MG/DL (0.2-1.0) Aspartate Amino Transf (AST/SGOT) 30 U/L (15-37) Alanine Aminotransferase (ALT/SGPT) 40 U/L (12-78) Alkaline Phosphatase 135 U/L (46-116) H Pro-B-Type Natriuretic Peptide 85 pg/mL (0-125) Total Protein 6.5 G/DL (6.4-8.2) Albumin 3.0 G/DL (3.4-5.0) L Globulin 3.5 g/dL Albumin/Globulin Ratio 0.9 (1.0-2.7) L Thyroid Stimulating Hormone (TSH) 1.171 uiU/mL (0.358-3.740) Current Medications Medications (Trade) Dose Ordered Sig/Ailyn Route PRN Reason Start Time Stop Time Status Last Admin Dose Admin Acetaminophen (Tylenol) 650 mg Q4H PRN ORAL Mild Pain/Temp > 100.5 10/05/18 03:15 11/04/18 03:14 10/06/18 06:00 Albuterol/ Ipratropium (Albuterol/ Ipratropium) 3 ml Q4HRT HHN 10/05/18 07:00 10/10/18 06:59 10/06/18 11:11 Barium Sulfate (Readi-Cat 2) 450 ml NOW PRN ORAL Radiology Procedure 10/05/18 11:45 10/07/18 11:33 Barium Sulfate (Readi-Cat 2) 450 ml NOW PRN ORAL Radiology Procedure 10/05/18 13:00 10/07/18 12:49 Ceftriaxone Sodium 1 gm/ Dextrose 55 ml @ 110 mls/hr Q24H IVPB 10/05/18 22:30 10/12/18 22:29 Dextrose (Dextrose 50%) 25 ml Q30M PRN IV Hypoglycemia 10/05/18 03:15 11/04/18 03:14 Dextrose (Dextrose 50%) 50 ml Q30M PRN IV Hypoglycemia 10/05/18 03:15 11/04/18 03:14 Heparin Sodium (Porcine) (Heparin 5000 units/ml) 5,000 units EVERY 12 HOURS SUBQ 10/05/18 09:00 11/04/18 08:59 10/06/18 08:56 Insulin Aspart (NovoLOG) BEFORE MEALS AND HS SUBQ 10/05/18 06:30 11/04/18 06:29 10/05/18 20:33 Iopamidol (Isovue-300 100ml) 100 ml NOW PRN INJ Radiology Procedure 10/05/18 11:45 10/07/18 11:44 Iopamidol (Isovue-370 150ml) 150 ml NOW PRN INJ Radiology Procedure 10/04/18 22:30 10/06/18 22:19 Ondansetron HCl (Zofran) 4 mg Q6H PRN IVP Nausea & Vomiting 10/05/18 03:15 11/04/18 03:14 10/05/18 13:03 Sodium Chloride 1,000 ml @ 75 mls/hr [id number] IV 10/05/18 18:17 11/04/18 18:16 10/05/18 18:48 Zander Hernandez MD Oct 06, 2018 13:00
--- NOTE | 2018-10-06 13:30 | NUR ---
NURSE NOTES: Patient was seen by Dr. Zander Hernandez who covers for Dr. Saha.
--- NOTE | 2018-10-06 14:23 | NUR ---
NURSE NOTES: Patient refused to be connected to IVF. RN explained the risks and benefits. Patient fully understood and able to hydrate herself. Patient asked when she can be discharged and patient and son wants to know patient's condition and talked to the doctor. Place a call to Dr. Youngblood's office and left a message to
[2018-10-06 16:00] VITALS: BP 138/93
[2018-10-06] MEDS ORDERED: LEVAQUIN500 MG ORAL (17:30)
[2018-10-06] MEDS ORDERED: cefTRIAXone 1 GM in D5W 55 ML IVPB SCH (17:30)
[2018-10-06] MEDS ORDERED: PSEUDOEPHEDRINE60 MG PO (17:30)
--- NOTE | 2018-10-06 18:37 | NUR ---
NURSE NOTES: Patient discharged to home accompanied by her family in stable condition. Prior to discharge, patient's condition was stable. V/S stable, afebrile. Denies any pain or discomfort. Patient was seen by Dr. Youngblood prior to discharge. IV antibiotic given prior to discharge and prescription given to the patient. Patient will fill the medication. IV and ID were removed, no s/s of infection on IV removal sites.Discharge instruction given to the patient about antibiotics, HTN, DM and patient knows when to seek medical attention. RN and patient checked belongings. All belongings accounted for. Staff escorted patient to her car.
--- NOTE | 2018-10-06 23:30 | Progress Note ---
DATE: 10/06/2018 SUBJECTIVE: The patient is defervesced, tolerating diet. Still with some fullness and congestion in her ears. Cough has decreased. OBJECTIVE: VITALS SIGNS: Stable. NECK: Supple. No adenopathy. LUNGS: Few rhonchi. Generally clear. ABDOMEN: Obese. EXTREMITIES: No edema. LABORATORY DATA: White count 4.3, hemoglobin 12.3. Potassium 3. TSH 1.1. Albumin 3. IMPRESSION: 1. Community-acquired pneumonia. 2. Resolved lactic acidosis. 3. Hypokalemia. 4. Mild protein-calorie malnutrition. 5. Obesity. 6. Possible component of otitis. PLAN: 1. Transition from IV to oral antimicrobials. 2. Replace potassium. 3. Protein supplement. 4. May complete recovery at home at this time. 5. Continue decongestant therapy as well. Rian Youngblood M.D. DR: CHRIS JOB#: [id number] CC:
--- NOTE | 2018-10-07 12:16 | Discharge Summary ---
Discharge Summary Discharge Summary _ DATE OF ADMISSION: 10/04/2018 DATE OF DISCHARGE: 10/06/2018 DISCHARGED BY: Dr. Rian Youngblood CONSULTANTS: Dr. Yas Hicks BRIEF HOSPITAL COURSE: Patient is a 53-year-old female, with a known history of underlying lung disease. She presented to the emergency room complaining of body aches, fever and headache for the past 1-2 days with nasal discharge. She also developed cough with sputum production over the past day. She denied nausea or vomiting, no diarrhea. On evaluation at the ED, patient was febrile. Lactic acid was elevated to 2. Chest x-ray showed cardiomegaly with mild interstitial congestion. Chest CT was negative for acute PE. There was evidence of left ventricular muscular hypertrophy and a finding of a 2 mm right middle lobe nodule. Patient is non- smoker. He was admitted for community-acquired pneumonia. He was given IV hydration. ID was consulted. She was given ceftriaxone and azithromycin. Influenza screen was negative. Tamiflu was discontinued. She was given bronchodilators. Blood glucose was monitored. She was placed on insulin sliding scale. Maxillofacial CT CT showed bilateral maxillary sinus mucus retention cysts. No acute abnormality. Abdominal and pelvic CT without definite acute or significant abdominal or pelvic abnormality. He was given potassium supplements. Blood culture did not isolate any growth. She was transitioned from IV to oral antibiotics. She was subsequently discharged home. FINAL DIAGNOSES: Community-acquired pneumonia Resolved lactic acidosis Hypokalemia Mild protein calorie malnutrition Obesity Possible component of otitis Diabetes mellitus type 2 Diverticulosis Hypertension DISPOSITION: Patient was discharged home. DISCHARGE MEDICATIONS: Refer to Discharge Medication List. DISCHARGE INSTRUCTIONS: Follow-up in a week. Repeat chest CT in 6 months. I have been assigned to complete a discharge summary on this account, I was not involved with the patient's management. Tatiana Hubbard NP Oct 07, 2018 12:16
== END 2018-10-06 18:50 | disposition home or self-care (01) | DRG 194 ==
LOC: EMR 21:26 → 4E 22:19 → EDBEDREQ 10-05 00:13
DX: J18.9 Pneumonia, unspecified organism (principal); E87.2 Acidosis; E44.1 Mild protein-calorie malnutrition; E87.6 Hypokalemia; E66.9 Obesity, unspecified; H66.90 Otitis media, unspecified, unspecified ear; E11.9 Type 2 diabetes mellitus without complications; K57.90 Diverticulosis of intestine, part unspecified, without perforation or abscess without bleeding; I10 Essential (primary) hypertension; Z79.4 Long term (current) use of insulin; Z68.36 Body mass index [BMI] 36.0-36.9, adult
CPT/HCPCS: 36415; 70486; 71045; 71275; 74177; 80053; 81003; 82962; 83605; 83690; 83880; 84443; 85025; 86710; 87040; 93005; 94640; 94664; 96361; 96365; 96375; 99285; J1815; J2405; J7620; J8499

== ENCOUNTER 2018-12-28 12:25 | Emergency (ER) | payer OTHER ==
[~2018-12-28] VITALS: Ht 149.9 cm; Wt 77.1 kg
[~2018-12-28 12:25] MED LIST changes: +LEVAQUIN500 MG ORAL; +PSEUDOEPHEDRINE60 MG PO
[2018-12-28] MEDS ORDERED: UNOBMED (12:34)
--- NOTE | 2018-12-28 13:02 | NUR ---
ED Nurse Note: PT WALKED IN TO ER C/O TO SORE THROAT, RUNNY NOSE AND BODY ACHE X 3 DAYS AGO. PT STATED SHE IS HAVING PAIN IN THE CHEST WHEN SHE IS COUGHING. DENIES DIFFICULTY BREATHING. NOT IN ACUTE DISTRESS. SEEN BY SOHA. WILL CONTINUE TO MONITOR.
[2018-12-28 13:04] VITALS: BP 125/80
--- NOTE | 2018-12-28 13:36 | NUR ---
ED Nurse Note: xray on bedside
--- NOTE | 2018-12-28 13:52 | Diagnostic Imaging Report ---
Indication: Cough Comparison: 10/05/2018 A single view chest radiograph was obtained. Findings: Cardiomediastinal appearance is within normal limits for age. The lungs are clear. Pulmonary vascularity is appropriate. The diaphragmatic contour is smooth and costophrenic angles are sharp. No pleural effusions are identified. The bones are unremarkable. Impression: No acute findings
[2018-12-28] MEDS ORDERED: PROMETHAZI6.25 MG/1 ORAL (14:09)
[2018-12-28] MEDS ORDERED: AUGMENTIN 875-1 EAC1 ORAL (14:09)
[2018-12-28 14:20] VITALS: BP 121/82
--- NOTE | 2018-12-28 14:20 | NUR ---
ER DISCHARGE NOTE: Patient is cleared to be discharged per ERMD, pt is aox4, on room air, with stable vital signs. pt was given dc and prescription instructions, pt was able to verbalize understanding, pt id band removed. pt is able to ambulate with steady gait. pt took all belongings.
--- NOTE | 2018-12-28 14:33 | Emergency Room Report ---
History of Present Illness General Chief Complaint: Flu Like Symptoms Source: Patient Present Illness HPI Patient present with complaints of cough and congestion sore throat ongoing for the past 7 days denies any headache She has had increased cough questionable low-grade fever Denies any vomiting or diarrhea she feels that she's having increased abdominal discomfort secondary to the cough Sore throat is 6 out of 10 Denies any change with her voice denies any recent travel denies any posterior neck pain or photophobia Allergies: Coded Allergies: No Known Allergies (Unverified , 12/28/18) Patient History Past Medical History: see triage record Pertinent Family History: none Last Menstrual Period: 15 YEARS AGO Now: No Reviewed Nursing Documentation: PMH: Agreed; PSxH: Agreed Nursing Documentation-PMH Past Medical History: No History, Except For Hx Cardiac Problems: No Hx Hypertension: Yes Hx Pacemaker: No Hx Asthma: No Hx COPD: No Hx Diabetes: Yes Hx Cancer: No Hx Gastrointestinal Problems: No Hx Dialysis: No Hx Neurological Problems: No Hx Cerebrovascular Accident: No Hx Seizures: No Review of Systems All Other Systems: negative except mentioned in HPI Physical Exam Vital Signs Date Time Temp Pulse Resp B/P (MAP) Pulse Ox O2 Delivery O2 Flow Rate FiO2 12/28/18 12:28 99.0 108 16 95 Room Air 12/28/18 13:04 125/80 Sp02 EP Interpretation: reviewed, normal General Appearance: well appearing, no apparent distress Head: normocephalic, atraumatic Eyes: bilateral eye PERRL, bilateral eye EOMI ENT: hearing grossly normal, normal voice, TMs + canals normal, uvula midline, pharyngeal erythema Neck: full range of motion, supple, no meningismus, no bony tend Respiratory: lungs clear, normal breath sounds, no rhonchi, no respiratory distress, no retraction, no accessory muscle use Cardiovascular #1: normal peripheral pulses, regular rate, rhythm, no edema, no gallop, no JVD, no murmur Gastrointestinal: normal bowel sounds, non tender, soft, no mass, no organomegaly, non-distended, no guarding, no hernia, no pulsatile mass, no rebound Genitourinary: no CVA tenderness Musculoskeletal: normal inspection Neurologic: oriented x3, responsive, nuclear unit operator III-XII nml as tested, motor strength/ tone normal, sensory intact Psychiatric: mood/affect normal Skin: normal color, no rash, warm/dry, palpation normal Lymphatic: normal inspection, no adenopathy Medical Decision Making Diagnostic Impression: Primary Impression: pharyngitis ER Course Patient's exam is consistent with multiple differentials including but not limited to flu, pharyngitis, meningitis Patient does not appear septic or toxic x-ray imaging is negative patient will have initial conservative treatment for pharyngitis Chest X-Ray Diagnostic Results Chest X-Ray Diagnostic Results : Chest X-Ray Ordered: Yes # of Views/Limited/Complete: 1 View Indication: Shortness of Breath EP Interpretation: Yes Interpretation: no consolidation, no effusion, no pneumothorax Impression: No acute disease Electronically Signed by: Donny Ward DO Last Vital Signs Date Time Temp Pulse Resp B/P (MAP) Pulse Ox O2 Delivery O2 Flow Rate FiO2 12/28/18 14:20 99.0 79 20 121/82 98 Room Air Status: improved Disposition: HOME, SELF-CARE Condition: Improved Scripts Promethazine Hcl (PROMETHAZINE HCL*) 6.25 Mg/5 Ml Syrup 5 ML ORAL Q8H for 7 Days, #120 ML 0 Refills Prov: Donny Ward DO 12/28/18 Amoxicillin/Potassium Clav 875-125* (AUGMENTIN 875-125 TABLET*) 1 Each Tablet 1 TAB ORAL TWICE A DAY, #10 TAB Prov: Donny Ward DO 12/28/18 Referrals: NON PHYSICIAN (PCP) Patient Instructions: Pharyngitis, [id number] Additional Instructions: Patient is provided with the discharge instructions notified to follow up with primary doctor in the next 2-3 days otherwise return to the er with any worsening symptoms. Please note that this report is being documented using [employer] technology. This can lead to erroneous entry secondary to incorrect interpretation by the dictating instrument. Donny Ward DO December 28, 2018 14:33
== END 2018-12-28 14:20 | disposition home or self-care (01) ==
LOC: EMR 13:20
DX: J02.9 Acute pharyngitis, unspecified (principal); I10 Essential (primary) hypertension; E11.9 Type 2 diabetes mellitus without complications
CPT/HCPCS: 71045; 99283

== ENCOUNTER 2019-02-01 14:01 | Emergency (ER) | payer OTHER ==
[~2019-02-01] VITALS: Ht 149.9 cm; Wt 81.6 kg
[~2019-02-01 14:01] MED LIST changes: +AUGMENTIN 875-1 EAC1 ORAL; +PROMETHAZI6.25 MG/1 ORAL
--- NOTE | 2019-02-01 14:22 | NUR ---
ED Nurse Note: PT WALKED IN TO ER TODAY FROM HOME. AOX4. PT C/O LOWER ABDOMINAL PAIN, 8/10, RADIATING TO LOWER RIGHT BACK X 3 DAYS AGO. ACTIVE BOWEL SOUNDS IN ALL QUADRANTS. LAST BM X THIS AM WHICH PT STATES WAS NORMAL. PT DENIES INCREASE IN URINARY FREQUENCY OR URGENCY, BURNING SENSATION, OR DIFFICULTY URINATING.
[2019-02-01 14:23] VITALS: BP 122/76
[2019-02-01 15:31] LABS: APPEARANCE,URINE CLEAR; BILIRUBIN, URINE NEGATIVE (NEGATIVE); COLOR,URINE PALE YELLOW; GLUCOSE, URINE (UA) NEGATIVE (NEGATIVE); KETONES,URINE NEGATIVE (NEGATIVE); LEUKOCYTE ESTERASE ,URINE 2+ (NEGATIVE); NITRITE,URINE NEGATIVE (NEGATIVE); PH,URINE 6 (4.5-8.0); PROTEIN,URINE NEGATIVE (NEGATIVE); UROBILINOGEN,URINE NORMAL MG/DL (0.0-1.0)
[2019-02-01 15:33] LABS: BASOPHILS % (AUTO) 0.6 % (0.0-2.0); EOSINOPHILS % (AUTO) 2.3 % (0.0-3.0); HEMOGLOBIN 13.4 G/DL (12.0-16.0); LYMPHOCYTES % (AUTO) 23.6 % (20.0-45.0); MEAN CORPUSCULAR VOLUME 87 FL (80-99); MONOCYTES % (AUTO) 7.8 % (1.0-10.0); NEUTROPHILS % (AUTO) 65.7 % (45.0-75.0); PLATELET COUNT 201 K/UL (150-450); RED BLOOD COUNT 4.71 M/UL (4.20-5.40)
[2019-02-01 15:43] LABS: ANION GAP 8 mmol/L (5-15); BLOOD UREA NITROGEN 10 mg/dL (7-18); CALCIUM 8.8 MG/DL (8.5-10.1); CARBON DIOXIDE 28 MMOL/L (21-32); CHLORIDE 103 MMOL/L (98-107); CREATININE 0.5 MG/DL (0.55-1.30); POTASSIUM 3.6 MMOL/L (3.5-5.1); SODIUM 139 MMOL/L (136-145)
[2019-02-01 15:48] LABS: ALANINE AMINOTRANSFERASE 22 U/L (12-78); ALBUMIN 3.7 G/DL (3.4-5.0); ALBUMIN/GLOBULIN RATIO 1.1 (1.0-2.7); ALKALINE PHOSPHATASE 123 U/L (46-116); ASPARTATE AMINO TRANSFERASE 15 U/L (15-37); BILIRUBIN,TOTAL 0.3 MG/DL (0.2-1.0)
--- NOTE | 2019-02-01 15:53 | NUR ---
ED Nurse Note: PT TO CT VIA GORDON.
--- NOTE | 2019-02-01 16:08 | NUR ---
ED Nurse Note: PT BACK FROM CT VIA GORDON.
--- NOTE | 2019-02-01 16:26 | Diagnostic Imaging Report ---
Indication: Abdominal pain Technique: Continuous helical transaxial imaging of the abdomen and pelvis was obtained from the lung bases to the pubic symphysis. No intravenous contrast was administered. Coronal 2-D reformats were also obtained. Automatic Exposure Control was utilized. Total Dose length Product (DLP): 953.[address] Dose Index Volume (CTDIvol): 18.84 mGy Comparison: none Findings: Lung bases are clear. The gallbladder is unremarkable. There are no renal stones or hydronephrosis appreciated. Bladder is mildly distended. Appendix is normal. Bowel gas pattern is nonobstructive. Gallbladder is unremarkable. There is no ascites. Small diverticula noted within the colon. No evidence of acute diverticulitis. IMPRESSION: No acute findings. Normal appendix. Very mild diverticulosis. No definite diverticulitis. The CT scanner at [facility] is accredited by the [employer] and the scans are performed using dose optimization techniques as appropriate to a performed exam including Automatic Exposure control.
--- NOTE | 2019-02-01 16:29 | Emergency Room Report ---
History of Present Illness General Chief Complaint: Back Pain-No Injury Source: Patient Present Illness HPI 53-year-old female with history of diabetes and hypertension currently controlled with medication here complaining of 3 days of bilateral lower quadrant pain mostly on the left quadrant pain and low back pain however they are not radiating to each other. Patient is rating her pain 10 out of 10 without radiation has taken ibuprofen for symptom relief. Denies diarrhea and vomiting, however feels nauseous. Denies recent travel, chest pain, shortness of breath, palpitation, or started any new medication. Denies blood in her stool or vomit. She further denies frequency of urination, dysuria and hematuria. Patient's patient is postmenopausal denies vaginal discharge and bleeding. Allergies: Coded Allergies: AMOXICILLIN (Verified Allergy, Unknown, 02/01/19) CLAVULANIC ACID (Verified Allergy, Unknown, 02/01/19) Patient History Past Medical History: see triage record Past Surgical History: unable to obtain Pertinent Family History: none Now: No Reviewed Nursing Documentation: PMH: Agreed; PSxH: Agreed Nursing Documentation-PMH Past Medical History: No History, Except For Hx Cardiac Problems: No Hx Hypertension: Yes Hx Pacemaker: No Hx Asthma: No Hx COPD: No Hx Diabetes: Yes Hx Cancer: No Hx Gastrointestinal Problems: No Hx Dialysis: No Hx Neurological Problems: No Hx Cerebrovascular Accident: No Hx Seizures: No Review of Systems All Other Systems: negative except mentioned in HPI Physical Exam Vital Signs Date Time Temp Pulse Resp B/P (MAP) Pulse Ox O2 Delivery O2 Flow Rate FiO2 02/01/19 14:06 98.2 65 20 117/71 (86) 97 Room Air Sp02 EP Interpretation: reviewed, normal General Appearance: normal inspection, well appearing, no apparent distress, non-toxic Head: normocephalic, atraumatic Eyes: bilateral eye normal inspection, bilateral eye PERRL ENT: normal ENT inspection, hearing grossly normal, normal pharynx Neck: normal inspection, full range of motion, supple, thyroid normal Respiratory: normal inspection, lungs clear, no rhonchi, no wheezing Cardiovascular #1: normal inspection, regular rate, rhythm, no murmur, normal capillary refill Gastrointestinal: normal bowel sounds, non tender, soft, guarding - left Lower quadrant Genitourinary: no CVA tenderness Musculoskeletal: normal inspection, back normal, digits/nails normal Neurologic: normal inspection, alert, oriented x3, responsive Psychiatric: normal inspection, judgement/insight normal Skin: normal inspection, normal color, no rash, warm/dry Lymphatic: normal inspection, no adenopathy Medical Decision Making PA Attestation All my diagnosis and treatment plans were reviewed ad discussed with my supervising physician Dr. Ward Diagnostic Impression: Primary Impression: Diverticulosis Additional Impression: Low back strain ER Course 53-year-old female with history of diabetes and hypertension currently controlled with medication here complaining of 3 days of bilateral lower quadrant pain mostly on the left quadrant pain and low back pain however they are not radiating to each other. Patient is rating her pain 10 out of 10 without radiation has taken ibuprofen for symptom relief. Denies diarrhea and vomiting, however feels nauseous. Denies recent travel, chest pain, shortness of breath, palpitation, or started any new medication. Denies blood in her stool or vomit. She further denies frequency of urination, dysuria and hematuria. Patient's patient is postmenopausal denies vaginal discharge and bleeding. Ddx considered but are not limited to: appendicitis, cholycisitis, gastritis, gasthroentritis, UTI, pylonephritis, SBO, diverticulitis, influenza with GI manifestation, OR, complication with Vital signs: are WNL, pt. is afebrile H&PE are most consistent with: Diverticulosis, low back strain ORDERS: abdominal CT, abdominal pain set, EKG, Zofran, tylenol, voltaren gel ED INTERVENTIONS: zofran DISCHARGE: At this time pt. is stable for d/c to home. Will provide printed patient care instructions, and any necessary prescriptions. Care plan and follow up instructions have been discussed with the patient prior to discharge. I advised the patient to follow-up with her primary care provider for referral to cloth mender there is no evidence of diverticulitis on CT scan patient to increase fiber intake cannot prescribe any steroids due to patient's diabetes status EKG Diagnostic Results Rate: normal Rhythm: NSR ST Segments: no acute changes CT/MRI/US Diagnostic Results CT/MRI/US Diagnostic Results : Imaging Test Ordered: Abdominal CT no contrast Impression Evidence of diverticulosis negative for renal stones and all other abnormalities Last Vital Signs Date Time Temp Pulse Resp B/P (MAP) Pulse Ox O2 Delivery O2 Flow Rate FiO2 02/01/19 14:23 98.4 68 18 122/76 98 Room Air Disposition: HOME, SELF-CARE Condition: Stable Scripts Acetaminophen* (TYLENOL EXTRA STRENGTH*) 500 Mg Tablet 500 MG ORAL Q6H PRN for Mild Pain/Temp > 100.5, #30 TAB 0 Refills Prov: Isaías Chandler 02/01/19 Diclofenac Sodium (VOLTAREN) 100 Gm Gel..gram. 2 GM TP TID, #100 GM Prov: Isaías Chandler 02/01/19 Ondansetron (Zofran) 4 Mg Tablet 4 MG ORAL Q6H PRN for Nausea & Vomiting, #12 TAB Prov: Isaías Chandler 02/01/19 Referrals: NON PHYSICIAN (PCP) Patient Instructions: Diverticulosis, Low Back Strain With Rehab-SportsMed Additional Instructions: Follow-up with your primary care provider for further assessment due to your diabetes status we cannot prescribe any steroids for your diverticulosis have your primary doctor refer you to cloth mender use Voltaren gel as needed for pain on your lower back increase fluid intake. Isaías Chandler Feb 01, 2019 16:29
[2019-02-01] MEDS ORDERED: VOLTAREN100 G1 TP (16:31)
[2019-02-01] MEDS ORDERED: TYLENOL EXTRA500 MG ORAL (16:31)
[2019-02-01] MEDS ORDERED: ZOFRAN4 M1 ORAL (16:31)
--- NOTE | 2019-02-01 16:39 | NUR ---
ED Nurse Note: PT LAYING PEACEFULLY IN BED IN NAD. AOX4. PRESCRIPTIONS AND DISCHARGE PAPERWORK EXPLAINED TO PT. PT VERBALIZES UNDERSTANDING AND ALL QUESTIONS ANSWERED. PRESCRIPTIONS AND DISCHARGE PAPERWORK GIVEN TO PT, IV AND ID WRISTBAND REMOVED. PT WALKED OUT OF ER WITH STEADY GAIT AND ALL BELONGINGS.
[2019-02-01 16:40] VITALS: BP 126/80
--- NOTE | 2019-02-02 15:29 | Cardiology Report ---
APPROVED REPORT EKG Measurement Heart [id number] ID [id number] Unusual P axis, possible ectopic atrial rhythm with occasional premature ventricular complexes Nonspecific T wave abnormality Abnormal ECG
== END 2019-02-01 16:41 | disposition home or self-care (01) ==
LOC: EMR 14:20
DX: K57.90 Diverticulosis of intestine, part unspecified, without perforation or abscess without bleeding (principal); S39.012A Strain of muscle, fascia and tendon of lower back, initial encounter; X58.XXXA Exposure to other specified factors, initial encounter; Y92.9 Unspecified place or not applicable; Z88.0 Allergy status to penicillin; I10 Essential (primary) hypertension; E11.9 Type 2 diabetes mellitus without complications
CPT/HCPCS: 36415; 74176; 80053; 81003; 83690; 84484; 85025; 93005; 96374; 96375; 99284; J2405; S0028

== ENCOUNTER 2019-04-02 21:33 | Emergency (ER) | payer OTHER ==
[~2019-04-02] VITALS: Ht 154.9 cm; Wt 113.4 kg
[~2019-04-02 21:33] MED LIST changes: +TYLENOL EXTRA500 MG ORAL; +VOLTAREN100 G1 TP; +ZOFRAN4 M1 ORAL
[2019-04-02 21:42] VITALS: BP 119/80
[2019-04-02] MEDS ORDERED: Ketorolac 30mg Inj IV ONE (22:00)
[2019-04-02 22:22] LABS: BASOPHILS % (AUTO) 1.3 % (0.0-2.0); EOSINOPHILS % (AUTO) 0.1 % (0.0-3.0); HEMATOCRIT 41.8 % (37.0-47.0); HEMOGLOBIN 14.2 G/DL (12.0-16.0); MEAN CORPUSCULAR VOLUME 88 FL (80-99); MONOCYTES % (AUTO) 7.5 % (1.0-10.0); NEUTROPHILS % (AUTO) 75.1 % (45.0-75.0); PLATELET COUNT 198 K/UL (150-450); RED BLOOD COUNT 4.73 M/UL (4.20-5.40); WHITE BLOOD COUNT 6.4 K/UL (4.8-10.8)
[2019-04-02 22:31] LABS: ANION GAP 8 mmol/L (5-15); BLOOD UREA NITROGEN 11 mg/dL (7-18); CALCIUM 9.1 MG/DL (8.5-10.1); CARBON DIOXIDE 26 MMOL/L (21-32); CHLORIDE 103 MMOL/L (98-107); CREATININE 0.7 MG/DL (0.55-1.30); POTASSIUM 3.8 MMOL/L (3.5-5.1); SODIUM 137 MMOL/L (136-145)
--- NOTE | 2019-04-02 22:36 | Emergency Room Report ---
History of Present Illness General Chief Complaint: Flu Like Symptoms Source: Patient, Medical Record Present Illness HPI This is a 53-year-old female with a history of hypertension and diabetes. She woke up with chief complaint of lower back pain and bilateral feet pain. No trauma. Also with fever and chills. No urinary complaint. Noted cough and congestion. Fever is subjective nature. Pain is 8 out of 10. Worse with movement. Allergies: Coded Allergies: AMOXICILLIN (Verified Allergy, Unknown, 02/01/19) CLAVULANIC ACID (Verified Allergy, Unknown, 02/01/19) Patient History Past Medical History: see triage record, old chart reviewed, DM, HTN Past Surgical History: other Pertinent Family History: none Social History: Denies: smoking Last Menstrual Period: None Now: No Immunizations: other Reviewed Nursing Documentation: PMH: Agreed; PSxH: Agreed Nursing Documentation-PMH Hx Cardiac Problems: No Hx Hypertension: Yes Hx Pacemaker: No Hx Asthma: No Hx COPD: No Hx Diabetes: Yes Hx Cancer: No Hx Gastrointestinal Problems: No Hx Dialysis: No Hx Neurological Problems: No Hx Cerebrovascular Accident: No Hx Seizures: No Review of Systems Constitutional: Reports: chills, fever Eye: Denies: eye pain, blurred vision ENT: Denies: ear pain, nose congestion, throat swelling Respiratory: Denies: cough, shortness of breath Cardiovascular: Denies: chest pain, palpitations Gastrointestinal: Denies: abdominal pain, diarrhea, nausea, vomiting Musculoskeletal: Reports: back pain, muscle pain; Denies: joint pain Skin: Denies: rash Neurological: Denies: headache, numbness Endocrine: Denies: increased thirst, increased urine Hematologic/Lymphatic: Denies: easy bruising All Other Systems: negative except mentioned in HPI Physical Exam Vital Signs Date Time Temp Pulse Resp B/P (MAP) Pulse Ox O2 Delivery O2 Flow Rate FiO2 04/02/19 21:42 99.9 98 18 119/80 (93) 94 Room Air Vitals with low-grade fever Sp02 EP Interpretation: reviewed, normal General Appearance: well appearing, no apparent distress, alert Head: normocephalic, atraumatic Eyes: bilateral eye PERRL, bilateral eye EOMI ENT: hearing grossly normal, normal pharynx Neck: full range of motion, supple, no meningismus Respiratory: chest non-tender, lungs clear, normal breath sounds Cardiovascular #1: regular rate, rhythm, no murmur Gastrointestinal: normal bowel sounds, non tender, no mass, no organomegaly, no bruit, non-distended Musculoskeletal: back normal, gait/station normal, normal range of motion Psychiatric: mood/affect normal Medical Decision Making Diagnostic Impression: Primary Impression: Urinary tract infection Qualified Codes: N30.00 - Acute cystitis without hematuria ER Course Patient with UTI and myalgia. No evidence of any sepsis, meningitis, pneumonia , pyelonephritis or infection. Patient felt better now. She grew out Klebsiella in the past. Dose of Rocephin given here. Will discharge home. Last Vital Signs Date Time Temp Pulse Resp B/P (MAP) Pulse Ox O2 Delivery O2 Flow Rate FiO2 04/02/19 21:42 99.9 98 18 119/80 (93) 94 Room Air Status: improved Disposition: HOME, SELF-CARE Condition: Stable Scripts Levofloxacin* (LEVAQUIN*) 500 Mg Tablet 500 MG ORAL DAILY, #7 TAB Prov: Casper Winters MD 04/02/19 Ibuprofen* (MOTRIN*) 600 Mg Tablet 600 MG ORAL THREE TIMES A DAY, #30 TAB 0 Refills Prov: Casper Winters MD 04/02/19 Additional Instructions: Increase fluids. Follow-up with your doctor in 3 to 5 days for recheck. Return if worse. Casper Winters MD Apr 02, 2019 22:36
[2019-04-02 22:38] LABS: APPEARANCE,URINE CLOUDY; BILIRUBIN, URINE 1+ (NEGATIVE); GLUCOSE, URINE (UA) NEGATIVE (NEGATIVE); KETONES,URINE 1+ (NEGATIVE); LEUKOCYTE ESTERASE ,URINE 3+ (NEGATIVE); NITRITE,URINE NEGATIVE (NEGATIVE); PH,URINE 8 (4.5-8.0); PROTEIN,URINE 2+ (NEGATIVE); UROBILINOGEN,URINE 4 MG/DL (0.0-1.0)
--- NOTE | 2019-04-02 22:46 | NUR ---
Patient walked in complaining of hand and foot pain bilat. Pain 10 ot of 10. AAOX4, VSS, RA SAt 96%, PT is in bed with family member.
[2019-04-02 22:47] LABS: COLOR,URINE YELLOW
[2019-04-02] MEDS ORDERED: cefTRIAXone 1 GM in NS 55 ML IVPB ONE (23:00)
[2019-04-02] MEDS ORDERED: LEVAQUIN500 MG ORAL (23:35)
[2019-04-02] MEDS ORDERED: IBUPROFEN600 MG ORAL (23:35)
[2019-04-02 23:50] VITALS: BP 119/80
== END 2019-04-02 23:50 | disposition home or self-care (01) ==
LOC: EMR 22:30
DX: N39.0 Urinary tract infection, site not specified (principal); Z88.1 Allergy status to other antibiotic agents; Z88.8 Allergy status to other drugs, medicaments and biological substances; E11.9 Type 2 diabetes mellitus without complications; I10 Essential (primary) hypertension; M79.672 Pain in left foot; M79.671 Pain in right foot
CPT/HCPCS: 36415; 80048; 81001; 85025; 87086; 87181; 96361; 96365; 96375; 99284; J0696; J1885